=== PATIENT | female | born 1945 | race Caucasian/White ===

== ENCOUNTER 2019-11-20 15:03 | Emergency (ER) | payer OTHER, MEDICARE ==
[~2019-11-20] VITALS: Ht 154.9 cm; Wt 81.7 kg
[~2019-11-20 15:03] MED LIST: AMBIEN5 MG PO; BENTYL20 MG PO; NEURONTIN300 MG PO; NORCO 5-325 TA1 EACH PO; PAXIL20 MG PO; PREDNISONE20 MG PO; PRILOSEC OTC20 MG PO; PROAIR HFA8.5 GM INH; TYLENOL ARTHRI650 MG PO; ZOFRAN ODT8 MG PO
[2019-11-20] MEDS ORDERED: LEVOTHYROXINE75 MCG PO (15:18)
[2019-11-20] MEDS ORDERED: TRAZODONE HCL150 MG PO (15:18)
[2019-11-20] MEDS ORDERED: DULOXETINE HCL60 MG PO (15:18)
[2019-11-20] MEDS ORDERED: PRILOSEC OTC20 MG PO (16:52)
--- NOTE | 2019-11-20 23:13 | EKG ---
[facility] [address] [facility] [place], [place] [address] Signed Normal sinus rhythm Normal ECG No previous ECGs available Confirmed by CHEYANNE LOPEZ MD ([id number]) on 11/20/2019 11:13:18 PM Electronically Signed By: CHEYANNE LOPEZ MD 11/20/19 2313 PATIENT NAME: AMINATA LAYNE SOLO Electrocardiogram DATE OF : 49 PHYSICIAN: CHEYANNE LOPEZ MD REPORT #: [id number] REPORT IS CONFIDENTIAL AND NOT TO BE RELEASED WITHOUT AUTHORIZATION
== END 2019-11-20 17:11 | disposition home or self-care (01) ==
LOC: ED 15:03
DX: R07.89 Other chest pain (principal); J45.909 Unspecified asthma, uncomplicated; Z88.0 Allergy status to penicillin; Z79.899 Other long term (current) drug therapy
CPT/HCPCS: 71045; 80053; 83735; 84484; 85025; 93005; 93010; 99285-25

== ENCOUNTER 2020-05-16 16:31 | Emergency (ER) | payer MEDICARE ==
[~2020-05-16] VITALS: Ht 154.9 cm; Wt 89.8 kg
[~2020-05-16 16:31] MED LIST changes: +DULOXETINE HCL60 MG PO; +LEVOTHYROXINE75 MCG PO; +TRAZODONE HCL150 MG PO
[2020-05-16] MEDS ORDERED: METOPROLOL SUCC25 MG PO (16:46)
[2020-05-16] MEDS ORDERED: INDAPAMIDE1.25 MG PO (16:47)
[2020-05-16] MEDS ORDERED: BUSPIRONE HCL5 MG PO (16:47)
[2020-05-16] MEDS ORDERED: ATORVASTATIN CA10 MG PO (16:47)
[2020-05-16] MEDS ORDERED: DICLOFENAC SOD100 G1 (16:48)
--- NOTE | 2020-05-16 22:10 | EKG ---
[facility] [address] [facility] [place], [place] [address] Signed Normal sinus rhythm Normal ECG When compared with ECG of 20-NOV-2019 15:10, No significant change was found Confirmed by CHEYANNE LOPEZ MD ([id number]) on 05/16/2020 10:10:14 PM Electronically Signed By: CHEYANNE LOPEZ MD 05/16/202209 PATIENT NAME: AMINATA LAYNE SOLO Electrocardiogram DATE OF : 49 PHYSICIAN: CHEYANNE LOPEZ MD REPORT #: [id number] REPORT IS CONFIDENTIAL AND NOT TO BE RELEASED WITHOUT AUTHORIZATION
== END 2020-05-16 20:01 | disposition home or self-care (01) ==
LOC: ED 16:31
DX: I10 Essential (primary) hypertension (principal); G47.30 Sleep apnea, unspecified; E11.9 Type 2 diabetes mellitus without complications; J45.909 Unspecified asthma, uncomplicated; Z88.0 Allergy status to penicillin; Z79.899 Other long term (current) drug therapy
CPT/HCPCS: 71045; 80053; 84484; 85025; 93005; 93010; 99285-25

== ENCOUNTER 2020-10-17 09:57 | Emergency (ER) | payer MEDICARE ==
[~2020-10-17] VITALS: Ht 154.9 cm; Wt 89.8 kg
[~2020-10-17 09:57] MED LIST changes: +ATORVASTATIN CA10 MG PO; +BUSPIRONE HCL5 MG PO; +DICLOFENAC SOD100 G1; +INDAPAMIDE1.25 MG PO; +METOPROLOL SUCC25 MG PO
[2020-10-17] MEDS ORDERED: LOSARTAN POTASS25 MG PO (10:18)
[2020-10-17] MEDS ORDERED: FLONASE ALLERG9.9 ML NAS (13:56)
--- NOTE | 2020-10-17 20:48 | EKG ---
[facility] [address] [facility] [place], [place] [address] Signed Sinus bradycardia with sinus arrhythmia Low voltage QRS Borderline ECG When compared with ECG of 16-MAY-2020 16:36, No significant change was found Confirmed by CHEYANNE LOPEZ MD ([id number]) on 10/17/2020 8:48:42 PM Electronically Signed By: CHEYANNE LOPEZ MD 10/17/202047 PATIENT NAME: ROVERTOAMINATA SOLO Electrocardiogram DATE OF : 49 PHYSICIAN: CHEYANNE LOPEZ MD REPORT #: [id number] REPORT IS CONFIDENTIAL AND NOT TO BE RELEASED WITHOUT AUTHORIZATION
== END 2020-10-17 14:17 | disposition home or self-care (01) ==
LOC: ED 09:57
DX: J30.9 Allergic rhinitis, unspecified (principal); G47.30 Sleep apnea, unspecified; E11.9 Type 2 diabetes mellitus without complications; J45.909 Unspecified asthma, uncomplicated; Z88.0 Allergy status to penicillin; Z79.899 Other long term (current) drug therapy
CPT/HCPCS: 80053; 81001; 84439; 84443; 84484; 85025; 93005; 93010; 96374; 99285-25; J2405

== ENCOUNTER 2021-09-17 21:00 | Emergency (ER) | payer MEDICARE ==
[~2021-09-17] VITALS: Ht 154.9 cm; Wt 87.1 kg
[~2021-09-17 21:00] MED LIST changes: +FLONASE ALLERG9.9 ML NAS; +LOSARTAN POTASS25 MG PO
[2021-09-18] MEDS ORDERED: HYDROCODON-ACE1 EA10 PO (00:47)
== END 2021-09-18 01:13 | disposition home or self-care (01) ==
LOC: ED 21:00
DX: S20.20XA Contusion of thorax, unspecified, initial encounter (principal); G47.30 Sleep apnea, unspecified; E11.9 Type 2 diabetes mellitus without complications; J45.909 Unspecified asthma, uncomplicated; Z88.0 Allergy status to penicillin; Z79.899 Other long term (current) drug therapy; Z79.51 Long term (current) use of inhaled steroids; W22.8XXA Striking against or struck by other objects, initial encounter
CPT/HCPCS: 36415; 71250; 85025; 96372; 99284-25; J2270

== ENCOUNTER 2022-03-31 01:06 | Emergency (ER) | payer OTHER, MEDICARE ==
[~2022-03-31] VITALS: Ht 154.9 cm; Wt 92.0 kg
[~2022-03-31 01:06] MED LIST changes: +HYDROCODON-ACE1 EA10 PO
[2022-03-31] MEDS ORDERED: HYDROCODON-ACE1 EA10 PO (05:37)
== END 2022-03-31 06:20 | disposition home or self-care (01) ==
LOC: ED 01:06
DX: R10.9 Unspecified abdominal pain (principal); E11.9 Type 2 diabetes mellitus without complications
CPT/HCPCS: 36415; 74176; 80053; 81001; 83690; 85025; 96374; 96375; 99284-25; A9270; J1170; J2405; J7040

== ENCOUNTER 2023-04-02 16:45 | Inpatient (IN) | payer MEDICARE ==
[~2023-04-02] VITALS: Ht 154.9 cm; Wt 92.0 kg
--- OUTSIDE RECORDS SUMMARY | ~2023-04-02 | XMS | Continuity of Care Document ---
Demographics + + + | Address | [address] | | | [place] [address] | + + + | Preferred Language | Unknown | + + + | Marital Status | | + + + | Protestant Affiliation | Unknown | + + + | Race | White | + + + | Ethnic Group | Not or | + + + Author + + + | Author | [facility] | + + + | Organization | [facility] | + + + | Address | [address] | | | [place] [address] | + + + | Phone | | + + + Care Team Providers + + + + | Care Rod Buster Helper Name | Role | Phone | + + + + Unavailable | Unavailable | + + + + Allergies No information. Encounters No information. Functional Status No information. Immunizations No information. Medications No information. Problems + + + + | date | description | facility | + + + + | 2023-01-03 12:49 | UNSPECIFIED ASTHMA, | [facility] | | | UNCOMPLICATED | | + + + + | 2023-01-03 13:00 | UNSPECIFIED ASTHMA, | [facility] | | | UNCOMPLICATED | | + + + + | 2023-03-25 09:29 | HYPOTHYROIDISM, | [facility] | | | UNSPECIFIED | | + + + + | 2023-03-25 09:29 | MORBID (SEVERE) OBESITY | [facility] | | | DUE TO EXCESS CALORIES | | + + + + | 2023-03-25 09:29 | DEHYDRATION | [facility] | + + + + | 2023-03-25 09:29 | Essential (primary) | [facility] | | | hypertension | | + + + + | 2023-03-25 09:29 | CHRONIC OBSTRUCTIVE | [facility] | | | PULMONARY DISEASE, | | | | UNSPECIFIED | | + + + + | 2023-03-25 09:29 | CALCULUS OF GB W ACUTE AND | [facility] | | | CHRONIC CHOLECYST W/O | | | | OBSTRUCTION | | + + + + | 2023-03-25 09:29 | ACUTE CHOLECYSTITIS | [facility] | + + + + Procedures No information. Results/Labs No information. Social History +--------+ + + | date | description | facility | +--------+ + + Vital Signs No information."
--- OUTSIDE RECORDS SUMMARY | ~2023-04-02 | XMS | Continuity of Care Document ---
Demographics + + + | Address | [address] | | | [place] [address] | + + + | Preferred Language | Unknown | + + + | Marital Status | | + + + | Catholic Affiliation | Unknown | + + + | Race | White | + + + | Ethnic Group | Not or | + + + Author + + + | Author | [facility] | + + + | Organization | [facility] | + + + | Address | [address] | | | [place] [address] | + + + | Phone | | + + + Care Team Providers + + + + | Care Wood Room Supervisor Name | Role | Phone | + [...]
[~2023-04-02 16:45] MED LIST changes: +ACETAMINOPHEN500 MG PO; +BACTRIM DS TAB1 EACH PO; +BUSPIRONE HCL10 MG PO; -DICLOFENAC SOD100 G1; +IBUPROFEN600 MG PO; +IRBESARTAN150 MG PO; +LEVOTHYROXINE100 MCG PO; +LIPITOR20 MG PO; +PROAIR DIGIHAL90 MCG INH; -PROAIR HFA8.5 GM INH; +TRAZODONE HCL100 MG PO; +VOLTAREN ARTHRI20 GM TOP
[2023-04-02 17:08] LABS: BASOPHILS 0.6 % (0-2); EOSINOPHILS 4.6 % (0-6); HEMATOCRIT 41.2 % (35.0-50.0); HEMOGLOBIN 13.6 g/dL (12.0-18.0); LYMPHOCYTES 28.4 % (24-44); MCH 31.3 (27-36); MCV 94.6 fl (81-99); MONOCYTES 10.9 % (0-12); NEUTROPHILS 55.5 % (39-80); PLATELET COUNT 355 K/uL (140-440); RBC 4.35 M/ul (4.3-5.7); RDW 14.6 (10.5-15.0)
[2023-04-02 17:30] LABS: ALBUMIN 3.8 g/dL (3.4-5.0); ALBUMIN/GLOBULIN RATIO 0.84 (1.1-2.4); ANION GAP 16.4 (7-21); BILIRUBIN, TOTAL 0.3 ng/dL (0.2-1.0); BUN/CREATININE RATIO 11.45 (6.0-28.6); CREATININE, SERUM 2.27 mg/dL (0.55-1.02); MAGNESIUM 2.1 mg/dL (1.8-2.4); POTASSIUM 4.4 mmol/L (3.5-5.1); PROTEIN, TOTAL 8.3 g/dL (6.4-8.2)
[2023-04-02 17:40] LABS: INFLUENZA B NAA NEGATIVE (NEGATIVE); RESPIRATORY SYNCYTIAL VIR NAA NEGATIVE (NEGATIVE)
[2023-04-02 19:35] VITALS: BP 152/88
--- NOTE | 2023-04-02 20:00 | NUR ---
PATIENT ARRIVED TO THE FLOOR VIA STRETCHER. PATIENT ABLE TO TRANSFER FROM STRETCHER TO HOSPITAL BED A SBA. PATIENTS VITALS TAKEN AND RECORDED. PATIENTS ADMISSION COMPLETED. DISCUSSED PLAN OF CARE. PATIENT DENIES ANY COMMENTS, QUESTIONS OR CONCERNS. IV INFUSING PER ORDER. CALL LIGHT IN REACH.
--- NOTE | 2023-04-02 20:10 | NUR ---
pt ARRIVES TO MEDICAL FLOOR VIA STRETCHER, AMBULATORY TO HOSPITAL BED. RATES PAIN 4/10 "MUCH BETTER AFTER MORPHINE". ASSESSMENT COMPLETE. BOWEL TONES ACTIVE, ABD SOFT, TENDER IN UPPER ABD WITH PALPATION. pt DENIES NAUSEA. NO REQUESTS AT THIS TIME. IV SITE FLUSHED WNL, IVF INFUSING ORDERED.
--- NOTE | 2023-04-02 21:09 | NUR ---
MD IN ROOM AT THIS TIME EVALUATING pt.
--- NOTE | 2023-04-02 21:54 | NUR ---
MD IN ROOM, NGT PLACED. CHEST X RAY COMPLETE AND VIEWED BY MD AT BEDSIDE. NGT FLUSHED WITH 60 MLS WATER. YELLOWISH GREEN DRAINAGE IN CANNISTER. SECURED TO GOWN. DISCUSSING PLAN FOR SURGERY IN AM, pt'S QUESTIONS ANSWERED. FAMILY IN ROOM. CALL LIGHT IN REACH.
--- NOTE | 2023-04-02 22:05 | NUR ---
CONSENT SIGNED BY pt AT THIS TIME. SCHEDULED MEDICATIONS ADMINISTERED. RT RIKY IN ROOM TO COMPLETE EKG FOR PREOP PREVIOUS EKG FROM ER WITH POOR READING. ptS FAMILY IN ROOM. NO REQUESTS AT THIS TIME. ICE CHIPS FOR COMFORT AND CALL LIGHT IN REACH.
--- NOTE | 2023-04-02 22:10 | EKG ---
[facility] [address] [place] [address] Signed Poor data quality, interpretation may be adversely affected Suspect arm lead reversal, interpretation assumes no reversal Normal sinus rhythm Lateral infarct , age undetermined Inferior infarct , age undetermined Abnormal ECG When compared with ECG of 26-MAR-2023 12:09, QRS axis shifted right Lateral infarct is now present T wave inversion now evident in Lateral leads Confirmed by Slick Correa MD () on 04/02/2023 10:10:26 PM Electronically Signed By: SLICK CORREA MD 04/02/23 2210 PATIENT NAME: AMINATA LAYNE Electrocardiogram DATE OF : 49 PHYSICIAN: SLICK CORREA MD REPORT #: [id number] REPORT IS CONFIDENTIAL AND NOT TO BE RELEASED WITHOUT AUTHORIZATION
--- NOTE | 2023-04-02 23:47 | NUR ---
PHONE CALL FROM , VERIFIED WITH pt HISTORY OF AFIB, pt STATES NOT ON ANY ANTICOAGS. MD UPDATED. PRN CEPACOL LOSANGE AND PRN MORPHINE ADMINISTERED FOR REPORTED PAIN IN ABDOMEN. NGT TO INT SUCTION. HOB ELEVATED. SON IN ROOM VISITING WITH pt. SCDS APPLIED. CALL LIGHT IN REACH.
[2023-04-03] VITALS (7 sets, daily range): BP systolic 105–149; BP diastolic 51–94
--- NOTE | 2023-04-03 02:20 | NUR ---
VSS. SBA TO RESTROOM FOR VOID AND BACK TO BED. ASSESSMENT COMPLETE. pt DENIES PAIN. ABD SOFT, TENDER IN UPPER ABDOMEN WITH PALPATION. NGT BACK TO INTERMITTENT SUCTION. IV SITE FLUSHED WNL AND INFUSING ORDERED. CALL LIGHT WITHIN REACH.
--- NOTE | 2023-04-03 05:30 | NUR ---
pt AWAKE RESTING IN BED. VSS. NGT TO INTERMITTANT WALL SUCTION, 200 MLS DRAINAGE OUT THIS SHIFT. SBA TO RESTROOM FOR VOID. BACK IN BED. IVF INFUSING WNL, IV ANTIBIOTIC INFUSING. pt DENIES ANY PAIN. CALL LIGHT IN REACH.
[2023-04-03 06:06] LABS: BASOPHILS 0.4 % (0-2); EOSINOPHILS 4.7 % (0-6); HEMATOCRIT 36.5 % (35.0-50.0); LYMPHOCYTES 35.4 % (24-44); MCH 31.2 (27-36); MCHC 32.9 g/dl (30-36); MCV 94.7 fl (81-99); MONOCYTES 8.2 % (0-12); NEUTROPHILS 51.3 % (39-80); PLATELET COUNT 265 K/uL (140-440); RBC 3.85 M/ul (4.3-5.7); RDW 14.7 (10.5-15.0)
[2023-04-03 06:17] LABS: ANION GAP 12.4 (7-21); BUN/CREATININE RATIO 13.46 (6.0-28.6); CREATININE, SERUM 1.56 mg/dL (0.55-1.02); POTASSIUM 4.4 mmol/L (3.5-5.1)
--- NOTE | 2023-04-03 06:52 | NUR ---
CALL LIGHT ANSWERED. PRN PAIN MEDICATION ADMINISTERED FOR 6-7/10 PAIN IN SHOULDER. PRN PAIN MEDICATION ADMINISTERED. pt DENIES ABDOMINAL PAIN. NGT FLUSHED WITH 70 MLS. WATER RETURNS IN TUBING, NGT TO INT SUCTION. CALL LIGHT IN REACH.
--- NOTE | 2023-04-03 07:43 | NUR ---
PT REPORT RECEIVED FROM AMALIA PICKENS. PT IS AWAKE, A&O X4, IN HER BED, LIGHTS OFF. PT DENIES NEEDS AT THIS TIME.
--- NOTE | 2023-04-03 09:00 | NUR ---
AMALIA FERREIRA FROM DAY SURGERY HERE TO TRANSPORT PT TO OR. PT REMOVED DENTURES, IV PUMP OFF. LR WITH STRAIGHT TUBING READY. FAMILY TOOK PT'S CELL PHONE WITH THEM.
--- NOTE | 2023-04-03 09:10 | NUR ---
Attempted to see Patricia. Or nurse in room ready to transport pt to OR.
--- NOTE | 2023-04-03 10:27 | NUR ---
RECIEVED HAND OFF REPORT FROM AMALIA DOMINGUEZ. PT CURRENTLY IN SURGERY.
--- NOTE | 2023-04-03 13:07 | NUR ---
04/03/23 1307 Verónica Varner 1253-PATIENT ARRIVED TO PACU ON 6L MASK RR EVEN. NG TUBE TO LEFT NARE CONNECTED TO LOW ITERMITTENT SUCTION GREEN SECRETIONS. PATIENT NONAROUSABLE IVF INFUSING TO TRIPLE LUMEN CENTRAL LINE. SR. DRESSING TO ABDOMEN CDI. 1259-PATIENT REACTIVE TO VERBAL STIMULI WINCING EYES CLOSED. GERARDO NEWSPAPER MANAGER AT BEDSIDE ADMINISTERED 50MCG FENTANYL IVP RIGHT AC IV FLUSHED RESISTANCE MET.
--- NOTE | 2023-04-03 13:58 | NUR ---
FAMILY IN ROOM INDICATED PT IN RECOVERY. SAID THEY WERE TOLD PROCEDURE WENT WELL. GAVE THANKS FOR SUCCESSFUL PROCEDURES. DENIED ANY NEEDS AT THIS TIME.
--- NOTE | 2023-04-03 14:45 | NUR ---
RECIEVED HAND OFF REPORT FROM AMALIA SHELLEY. PT RESTING IN BED, AWAKE. ABD SITE HYPOACTIVE IN ALL, DRESSING CDI. CPOX AND SCDS IN PLACE. NG CONNECTED TO INT. WALL SUCTION. FAMILY AT BEDSIDE. CALL LIGHT IN REACH.
--- NOTE | 2023-04-03 16:45 | NUR ---
POST OP ASSESSMENT COMPLETE. PT RESTING IN BED, REQUESTING PAIN MEDICATION. ABD HYPOACTIVE THROUGHOUT. DRESSING CDI. CALL LIGHT IN REACH.
--- NOTE | 2023-04-03 17:05 | NUR ---
PT COMPLAINS OF 9/10 PAIN, PRN PAIN MEDICATION ADMINISTERED (PER EMAR). FLUSHED NG TUBE (PER MD ORDER) WITH 20ML TAP WATER. PT TOLERATED WELL NG REMAINS CONNECTED TO INT. WALL SUCTION. PT STATES NO FURTHERS NEEDS AT THIS TIME. CALL LIGHT IN REACH.
--- NOTE | 2023-04-03 19:30 | NUR ---
REPORT RECEIVED FROM DAY SHIFT RN. PT SITTING UP IN BED AWAKE AND ALERT. NGT IN PLACE. OXY MASK IN PLACE. NAUSEA MEDICATION PROVIDED PER PATIENT REQUEST FOR NAUSEA. NO OTHER NEEDS AT THIS TIME. FAMILY MEMEBERS AT BEDSIDE. CALL LIGHT WITHIN REACH. SAFETY PRECAUTIONS IN PLACE.
--- NOTE | 2023-04-03 22:10 | EKG ---
[facility] [address] [facility] [place] [address] Signed Sinus bradycardia Possible Left atrial enlargement Low voltage QRS Borderline ECG When compared with ECG of 02-APR-2023 17:02, QRS axis shifted left Criteria for Lateral infarct are no longer present Confirmed by Slick Correa MD () on 04/03/2023 10:10:26 PM Electronically Signed By: SLICK CORREA MD 04/03/23 2210 PATIENT NAME: AMINATA LAYNE SOLO Electrocardiogram DATE OF : 49 PHYSICIAN: SLICK CORREA MD REPORT #: [id number] REPORT IS CONFIDENTIAL AND NOT TO BE RELEASED WITHOUT AUTHORIZATION
--- NOTE | 2023-04-04 00:41 | NUR ---
PT SITTING UP IN BED WATCHING TV. NO NEEDS EXPRESSED AT THIS TIME. IV FLUIDS INFUSING. RIGHT TRIPLE LUMEN IJ IN PLACE. NGT TUBE IN PLACE AND ON LOW INT SUCTION. OXY MASK IN PLACE. O2 WNL. CALL LIGHT WITHIN REACH. SAFETY PRECAUTIONS IN PLACE.
[2023-04-04 01:44] VITALS: BP 125/68
--- NOTE | 2023-04-04 04:22 | NUR ---
PT RESTING COMFORTABLY IN BED. BREATHING EVEN AND UNLABORED. NO NEEDS EXPRESSED AT THIS TIME. CALL LIGHT WITHIN REACH. SAFETY PRECAUTIONS IN PLACE. NGT IN PLACE CONNECTED TO LOW INT SUCTION. DAWN CATHETER IN PLACE AND DRAINING CLEAR YELLOW URINE. O2 IN PLACE. WILL CONTINUE TO MONITOR.
[2023-04-04 05:10] VITALS: BP 149/84
[2023-04-04 06:03] LABS: BASOPHILS 0.1 % (0-2); HEMATOCRIT 30.2 % (35.0-50.0); HEMOGLOBIN 9.9 g/dL (12.0-18.0); LYMPHOCYTES 7.8 % (24-44); MCH 31.1 (27-36); MCHC 32.8 g/dl (30-36); MONOCYTES 4.5 % (0-12); NEUTROPHILS 87.6 % (39-80); PLATELET COUNT 229 K/uL (140-440); RBC 3.18 M/ul (4.3-5.7); RDW 14.2 (10.5-15.0)
[2023-04-04 06:06] LABS: ANION GAP 11.6 (7-21); BUN/CREATININE RATIO 17.44 (6.0-28.6); CALCIUM 8.4 mg/dL (8.5-10.1); CREATININE, SERUM 0.86 mg/dL (0.55-1.02); POTASSIUM 4.6 mmol/L (3.5-5.1)
--- NOTE | 2023-04-04 07:20 | NUR ---
PT REPORT RECEIVED FROM AMALIA OG. PT IS RESTING IN BED, HOB ELEVATED, TALKING ON HER CELL PHONE. SHE IS A&O, REPORTS HER PAIN IS OKAY BUT IS STARTING TO CREEP UP ON HER. SHE DENIES ANY NEEDS AT THIS TIME. MIDLINE DRESSING IS INTACT WITH A MINISCULE AMOUNT OF DRAINAGE NOTED IN THE CREASE OF THE LOWER PORTION OF THE DRESSING. BRUISING FROM HEPARIN SHOTS NOTED IN LOWER ABDOMENT. CALL LIGHT IN REACH.
[2023-04-04 09:44] VITALS: BP 132/59
--- NOTE | 2023-04-04 10:50 | NUR ---
REPORT RECEIVED FROM SOBIA RN - PT RESTING IN BED, STATES PAIN IS "WELL CONTROLLED". NGT IN PLACE AT LIS. SP02 96% ON BED SIDE MONITOR. PT STATES UNDERSTANDING TO AMBULATE THIS HOUR.
--- NOTE | 2023-04-04 10:58 | NUR ---
Pt NPO with NGT to low intermittent suction, no NGT output this shift. No c/o nausea. Pt asked for ice chips, ice chips provided. Rated pain 5/10 and classified it as moderate, pain medications provided and on follow up rated it a 1/10 and tolerable. No BM since surgery, reports not having passed gas, advised to let us know if she passes gas. Encouraged ambulation and made a plan with the patient on when to ambulate next.
--- NOTE | 2023-04-04 11:58 | NUR ---
PT UP TO AMBULATE IN HALLWAY - TOELRATED WITH MODERATE PAIN. PRN TORADOL ADMINISTERED AFTER GETTING PT BACK TO CHAIR. ICE JOSUE APPLIED TO MIDLINE INCISION. ALL BELONGINGS IN REACH.
--- NOTE | 2023-04-04 13:15 | NUR ---
Spoke with Patricia. She states she is getting up to walk. I let her know I am CM, and not here to make her walk. She states she needs to get up and walk. She wants to do what the wants. She states she lives in [place] in a house with 5 steps. She does not have rails, but son plans on installing them. She has 5 children and they all want to help her. She has a broken walker and cane. She does not want help ordering from Medicare. She states they are on the "outs". I gave her the infor for [employer] closet. She states she just needs to have her son fix her walker and it will be good. She states she works weekends at [employer]. She pays to mortgage. She states she is ok financially. She cooks, son shops and cleans house. She plans on dc to home when cleared medically. She refuses help with DME. Her son lives with her. She denies further needs.
--- NOTE | 2023-04-04 13:15 | NUR ---
RN IN ROOM TO COMPLETE ASSESSMENT. PT REMAINS UP IN CHAIR. ENCOURAGING COUGH AND DEEP BREATHS. NGT REMAINS AT LIS, MINIMAL OUTPUT. MIDLINE DRESSING C/D/I.
--- NOTE | 2023-04-04 13:38 | NUR ---
EXERCISED MINISTRY OF PRESENCE PT TALKED OF FAMILY AND PENTECOSTALISM HISTORY. GAVE THANKS FOR THOSE BLESSINGS AND FOR SUCCESSFUL PROCEDURE. PT CONSENTED TO PRAYER. PRAYED FOR COMPLETE AND TIMELY HEALING.
[2023-04-04 13:49] VITALS: BP 138/62
--- NOTE | 2023-04-04 14:25 | NUR ---
THIS RN IN ROOM AFTER DR. ARTEAGA ROUNDING. NGT PULLED BY DR. ARTEAGA ACCORDING TO PT. PT PROVIDED BROTH AND JELLO AND ADVISED TO GO SLOWLY WITH ORAL INTAKE. ABX ADMINISTERED. VS STABLE.
--- NOTE | 2023-04-04 15:00 | NUR ---
PT SITTING UP IN CHAIR VISITING WITH FAMILY, CALL LIGHT WITHIN REACH.
--- NOTE | 2023-04-04 16:54 | NUR ---
Pt given medication for pain of 5/10 which she rated as moderate to severe. Reassessed after pain medication given and she rates it as a 3/10 her goal and tolerable for her. Resting comfortably, talking and laughing with family. Tolerated Jello and broth without difficulty, no N/V with d/c of NGT. Looking forward to dinner. Remains OOB in chair. Encouraged ambulation and made plan to ambulate later this evening.
[2023-04-04 17:37] VITALS: BP 146/61
--- NOTE | 2023-04-04 18:21 | NUR ---
pt up in hallway ambulating with student rn assistance. Dr. cortés aware of pt's request to start home meds.
--- NOTE | 2023-04-04 18:40 | NUR ---
Pt reports pain at a 3 adminstration of pain meds, able to ambulate in melo with walker entire length of unit and back without difficulty with student nurse. Talking and laughing while ambulating without SOB or dizziness. Some belching after PO intake and while ambulating. Back to bed, after being up in her chair for the day. SCD's back on. IVF running without difficulty. Rodas cath draining, she had concern it was leaking. Inspected and no leaking noted.
--- NOTE | 2023-04-04 19:27 | NUR ---
REPORT RECEIVED FROM DAY SHIFT RN. PT SITTING UP IN BED TALKING ON THE PHONE. NO SIGNS OF ACUTE DISTRESS. NO NEEDS EXPRESSED AT THIS TIME. CALL LIGHT WITHIN REACH. SAFETY PRECAUTIONS IN PLACE.
[2023-04-04 20:15] VITALS: BP 156/74
[2023-04-05 05:40] VITALS: BP 145/64
--- NOTE | 2023-04-05 07:11 | NUR ---
VERBAL REPORT RECEIVED FROM AMALIA OG.
--- NOTE | 2023-04-05 07:29 | NUR ---
PT UP WITH TIMOTHY QUINONES, ASSISTED BY ULTRASONIC SEAMING MACHINE OPERATOR.
--- NOTE | 2023-04-05 07:34 | NUR ---
REPORT GIVEN TO DAY SHIFT RN. PT RESTING IN BED WTH EYES CLOSED. BREATHING EVEN AND UNABORED. CALL LIGHT WITHIN REACH. SAFETY PRECAUTIONS IN PLACE. NO NEEDS EXPRESSED AT THIS TIME.
[2023-04-05 09:01] VITALS: BP 159/70
--- NOTE | 2023-04-05 09:53 | NUR ---
PT SITS UP IN RECLINER, LR INFUSING VIA IJ BLUE LUMEN. WHITE AND BROWN LUMENS FLUSHED WITH 10CC OF NS, BLOOD RETURN NOTED, PATENT. IV IN RAC FLUSHED WITH 1OCC OF NS, PATENT, DRESSING C/D/I, NO REDNESS NOTED. PT ON 2L O2 VIA NC, SATS 98%. PT REPORTS FLATUS THIS MORNING. PT AGREES TO AMBULATE IN HALLWAY TODAY WITH STUDENT NURSE DWAYNE. DRESSING OVER MID ABDOMEN INCISION IS INTACT. SMALL AMOUNT OF OLD DRY DRAINAGE NOTED ON DRESSING. NO NEW DRAINAGE NOTED. NO REQUESTS AT THIS TIME.
--- NOTE | 2023-04-05 10:40 | NUR ---
CONNECTED WITH PT WHILE SHE WAS WALKING IN HALLWAY. PT SEEMED IN GOOD SPIRITS WTIH CONTINUED GOOD HUMOR. PRAYED SILENTLY FOR CONTINUED HEALING.
--- NOTE | 2023-04-05 11:00 | NUR ---
Pt was OOB for breakfast. Ambulated after breakfast BP 134/87, HR 62 s/p metoprolol and prior to ambulation. Void x 1 prior to ambulatioin. Tolerated ambulating the entire unit w/p dizziness or weakness. Slightly SOB while ambulating but improved with pause and deep breathe. Back to bed after ambulating per pt request. SCDs on, call das in reach. IVF's running as ordered. Made plan with patient to get OOB to chair for lunch.
--- NOTE | 2023-04-05 11:47 | NUR ---
PT PROVIDED INCENTIVE SPIROMETER AND EDUCATED ON USE, ABLE TO DEMONSTRATE CORRECT USE UPON TEACHBACK. MD ENCOURAGED FLUIDS. PROVIDED PATIENT WITH FRESH CUP/STRAW OF WATER AND ENCOURAGED PATIENT TO TAKE SMALL FREQUENT SIPS TO INCREASE FLUID INTAKE.
--- NOTE | 2023-04-05 12:55 | NUR ---
Pt ambulated with assistance to bathroom with + void. Pt became tearful while sitting on the toilet, crying. Asked pt to verbalize feelings and she states she didn't know what was wrong but she didn't want her family to worry and she thought she would be futher along in healing process. Support provided, discussed healing process taking time. Got patient back to chair, provided warm blanket, hot broth. Call das in reach, phone provided so she can call family. RN notified pt tearful. watch assembly instructor notified charge nurse that patient interested in PRN Buspirone.
--- NOTE | 2023-04-05 13:15 | NUR ---
PT SITTING UP IN RECLINER, TEARFUL. EXPRESSES SADNESS AND ANXIETY REGARDING HOSPITALIZATION. PROVIDED COMFORT AND REASSURANCE. PT GIVEN PRN ELIZA, SEE EMAR. PT DENIES FURTHER NEEDS AT THIS TIME. CALL LIGHT IN REACH.
--- NOTE | 2023-04-05 13:28 | NUR ---
PT SITS UP IN RECLINER. PT IS TEARFULL, HAS TISSUES. PT STATES, "I JUST HAVING A DOWN DAY." MORE TISSUES PROVIDED. CALL LIGHT IN REACH. NO FURTHER REQUESTS AT THIS TIME.
[2023-04-05 13:34] VITALS: BP 156/88
--- NOTE | 2023-04-05 14:46 | NUR ---
PT SITS UP IN BED, SCDS IN PLACE, 2L O2 VIA NC, SATS 96%. PT REPORTS SHE FEELS LIKE SHE IS ABLE TO CLEAR HER SECRETIONS WELL. CALL LIGHT IN REACH, NO REQUESTS AT THIS TIME. VISITOR X1 IN ROOM. PT WATCHES TV.
--- NOTE | 2023-04-05 16:52 | NUR ---
1640-PT REPORTS ABDOMINAL PAIN 12/08. DILAUDID RECEIVED, SEE eMAR. PT SBA TO BATHROOM, PT VOIDS CLEAR YELLOW URINE. PT SBA TO RECLINER. PT TOLERATES ACTIVITY WELL. NOTED SWELLING AROUND IJ SITE. DRESSING INTACT, NO LEAKING. INFUSION STOPPED. 1644- CALLED AND NOTIFIED OF MODERATED SWELLING AROUND IJ SITE. LR WAS INFUSING VIA THE BLUE LUMEN, INSTRUCTS TO CHECK LUMENS FOR BLOOD RETURN AND RESUME INFUSION VIA THE BROWN LUMEN. IF SWELLING WORSENS HE IS TO BE CONTACTED. 1651-BLUE, BROWN AND WHITE LUMENS EACH FLUSHED WITH 10CC OF NS, BLOOD RETURN NOTED. LR INFUSION RESUMED VIA BROWN (DISTAL) LUMEN.
--- NOTE | 2023-04-05 17:22 | NUR ---
SWELLING PREVIOUSLY NOTED AROUND IJ HAS NOT CHANGED, NO INCREASE. NO REDNESS OR LEAKING NOTED. LR CONTINUES TO INFUSE. PT SITS UP IN RECLINER ON CELL PHONE. NO REQUESTS AT THIS TIME.
--- NOTE | 2023-04-05 18:12 | NUR ---
PT TOLERATED ACTIVITY WELL TODAY. SITS UP IN BED, REPOSITIONS SELF, AMBULATES WITH WALKER TO RECLINER, BATHROOM AND IN HALLWAY. PT MAINTAINS O2 SATS GREATER THAN 94% ON 2L O2 VIA NC. INCISIONS TO ABDOMEN REMAIN WELL APPROXIMATED, NO NEW DRAINAGE. PT DOES EXPERIENCE INCREASED FOAM SECRETIONS WHICH SHE IS ABLE TO CLEAR, DR. ARTEAGA SPOKE TO PT ABOUT THIS AND HOW IS RELATES TO EDEMA FROM THE SURGERY. PT WAS TEARFUL TODAY, EXPRESSED THAT SHE DIPIKA DOWN, SHE DID RECOVER FROM THIS EPISODE AND HAD VISITORS THIS EVENING. PT REPORTS FLATUS, BOWL TONES ARE HYPOACTIVE. IJ IN RIGHT NECK DOES HAVE MILD SWELLING, PARTICULARLY AT THE DISTAL AREA OF THE SITE. THIS HAS NOT INCREASED SINCE THE LR INFUSION WAS CHANGED TO INFUSE VIA THE BROWN (DISTAL) LUMEN. DR. ARTEAGA IS TO BE NOTIFIED IF THE SWELLING WORSENS. PAIN TODAY HAS BEEN CONTROLLED WITH MORPHINE AND DILAUDID IV.
[2023-04-05 18:20] VITALS: BP 124/64
--- NOTE | 2023-04-05 19:39 | NUR ---
REPORT RECEIVED FROM DAY SHIFT RN. PT SITTING UP IN RECLINER AWAKE AND ALERT TALKING WITH MD AT BEDSIDE. NO SIGNS OF ACUTE DISTRESS. CALL LIGHT WITHIN REACH. NO NEEDS EXPRESSED AT THIS TIME. WILL CONTINUE TO MONITOR.
[2023-04-05 20:23] VITALS: BP 153/70
--- NOTE | 2023-04-05 21:15 | NUR ---
Asissted Pt SBA from chair to bathroom to bed. Gave Pt warm blanket and refilled fresh water and ice. Family member in room. Call light left in reach. No other needs expressed by Pt.
--- NOTE | 2023-04-06 00:55 | NUR ---
PT RESTING IN BED WITH EYES CLOSED. BREATHING EVEN AND UNLABORED. BIPAP IN PLACE. IV FLUIDS INFUSING. CALL LIGHT WITHIN REACH. SAFETY PRECAUTIONS IN PLACE. WILL CONTINUE TO MONITOR.
--- NOTE | 2023-04-06 01:05 | NUR ---
HOME BIPAP SET UP AND READY TO GO. SETTINGS PIP 22, EPAP RANGE 7-15, PS MAX 15, PS MIN 3, RR AUTO.
--- NOTE | 2023-04-06 02:36 | NUR ---
IN TO ASSIST TO BR, SBA
[2023-04-06 04:57] VITALS: BP 151/70
[2023-04-06 05:20] LABS: BASOPHILS 0.3 % (0-2); EOSINOPHILS 2.8 % (0-6); HEMATOCRIT 28.2 % (35.0-50.0); HEMOGLOBIN 9.4 g/dL (12.0-18.0); LYMPHOCYTES 27.8 % (24-44); MCHC 33.3 g/dl (30-36); MCV 93.2 fl (81-99); MONOCYTES 6.5 % (0-12); NEUTROPHILS 62.6 % (39-80); PLATELET COUNT 220 K/uL (140-440); RBC 3.03 M/ul (4.3-5.7); RDW 14.6 (10.5-15.0)
[2023-04-06 05:31] LABS: ANION GAP 11.5 (7-21); BUN/CREATININE RATIO 16.41 (6.0-28.6); CALCIUM 8.6 mg/dL (8.5-10.1); CREATININE, SERUM 0.67 mg/dL (0.55-1.02); MAGNESIUM 1.6 mg/dL (1.8-2.4); POTASSIUM 3.5 mmol/L (3.5-5.1)
--- NOTE | 2023-04-06 07:40 | NUR ---
Patient resting in bed, eyes closed, respirations even and non labored. IV fluids infusing per provider order. Call light within reach.
--- NOTE | 2023-04-06 08:45 | NUR ---
Patient sitting up in chair, alert and oriented x4, no distress. Patient reports tolerable pain at this time, no nausea. Abdominal dressing has small amount of dried sarosang drainage noted. Patient's IJ intact/patent, fluids infusing per provider order. Patient reports passing flatus, active bowel tones x4 quadrants. No current needs, personal supplies and call light within reach.
--- NOTE | 2023-04-06 12:46 | NUR ---
Patient ambulated in hallway with family, tolerated very well.
--- NOTE | 2023-04-06 13:40 | NUR ---
Patient's diet advanced to full liquids per Dr. Dick's verbal order. Patient tolerating eating pudding at this time. Patient's swallow intact. Patient educated regarding diet change and new plan of care.
[2023-04-06 13:41] VITALS: BP 147/75
[2023-04-06 17:33] VITALS: BP 139/74
--- NOTE | 2023-04-06 17:52 | NUR ---
Patient sitting up in chair eating her dinner, tolerating well. Patient's swallow remains intact, airway patent. Patient has a visitor at bedside. Patient reported to be tolerable, no nausea. Call light within reach of pt.
--- NOTE | 2023-04-06 20:00 | NUR ---
REPORT GIVEN BY DAY SHIFT RN. ROUNDING ON PATIENT. PATIENT IN THE CHAIR, AND UP TO THE BATHROOM WITH MINIMAL SBA. PATIENT BACK TO BED AND SCD's WERE PLACED. PATIENT STATES NO FURTHER NEEDS, AND CALL LIGHT IS WITHIN REACH.
[2023-04-06 21:29] VITALS: BP 137/73
--- NOTE | 2023-04-06 22:21 | NUR ---
ASSESSMENT COMPLETE. PAIENTS EVENING MEDICATIONS WERE ADMINISTERED, SEE EMAR. PATIENT DENIES DIFFICULTING SWALLOWING AND ABLE TO TAKE MEDICATION. PATIENT UP TO THE BATHROOM WITH MINIMAL SBA. PATIENT STATES MINIMAL PAIN WHEN TOUCHING THE ABDOMEN BUT IT IS "TOLERABLE". PATIENT HAS ACTIVE BOWEL TONES IN ALL FOUR QUADRANTS. THE DRESSING ON THE INSISION IS C/D/I WITH MINIMAL SHADOWING PRESENT. SCDs IN PLACE. PATIENT STATES NO FURTHER NEEDS AT THIS TIME, AND IS READY TO GET SOME REST. CALL LIGHT WITHIN REACH.
--- NOTE | 2023-04-06 23:25 | NUR ---
ROUNDING ON PATIENT. PATIENT RESTING IN BED WITH EYES CLOSED. RESPIRATIONS EVEN AND UNLABORED. CALL LIGHT WITHIN REACH.
--- NOTE | 2023-04-07 00:36 | NUR ---
CALL LIGHT ANSWERED. PATIENT UP TO THE BATHROOM WITH MINIMAL SBA. PATIENT STATES SHE HAS "5/10 PAIN" IN HER ABDOMEN. MEDICAITON GIVEN, SEE EMAR. NO SWALLOWING ISSUES NOTED. RIGHT SIDE IJ CARE PROVIDED AND WNL. HEPARIN LOCKED PER PROTOCOL, BRISK BLOOD RETURN NOTED IN ALL 3 LUMENS. IV IN THE RIGHT FOREARM FLUSHED. AND IS WNL. CPAP IN PLACE. SCDs IN PLACE. PATIENT HAS NO FURTHER NEEDS AT THIS TIME. CALL LIGHT WITHIN REACH.
--- NOTE | 2023-04-07 02:28 | NUR ---
ROUNDING ON PATIENT. PATIENT RESTING IN BED WITH EYES CLOSED. RESPIRATIONS EVEN AND UNLABORED. CPAP IN PLACE. PATIENT 02 AT 92%. CALL LIGHT WITHIN REACH.
--- NOTE | 2023-04-07 04:02 | NUR ---
CALL LIGHT ANSWERED. PT UP TO BR WITH MINIMAL SBA TO VOID 700 ML YELLOW URINE. BACK TO BED, NGHIA WELL. CPAP OFF AT THIS TIME. CPOX IN PLACE. WARM BLANKET PROVIDED. NO FURTHER NEEDS.
[2023-04-07 05:18] VITALS: BP 142/60
--- NOTE | 2023-04-07 05:38 | NUR ---
SECOND ASSESSMENT COMPLETE. VSS. MORNING LABS DRAWN FROM CENTRAL LINE PER PROTOCOL. PATIENT INCISION DRESSING IS C/D/I WITH MINIMAL SHADOWING PRESENT. CPAP REMOVED, AND PLACED ON 2L NC. PATIENT FELL BACK ASLEEP QUICKLY. RESPIRATIONS EVEN AND UNLABORED. 02 SAT IN LOW 90'S. NO FURTHER NEEDS. CALL LIGHT WITHIN REACH.
[2023-04-07 05:45] LABS: ANION GAP 10.6 (7-21); BUN/CREATININE RATIO 7.69 (6.0-28.6); CALCIUM 8.5 mg/dL (8.5-10.1); CREATININE, SERUM 0.65 mg/dL (0.55-1.02); MAGNESIUM 1.9 mg/dL (1.8-2.4); POTASSIUM 3.6 mmol/L (3.5-5.1)
[2023-04-07 09:10] VITALS: BP 119/60
--- NOTE | 2023-04-07 09:46 | NUR ---
PT HAS BEEN UP INT THE CHAIR THIS AM. ATE SOME OF HER FULL LIQUID DIET, TOLERATING WELL. SHE IS WATCHING TV AND TALKING ON THE PHONE WITH FAMILY
[2023-04-07] MEDS ORDERED: IBUPROFEN600 MG PO (13:41)
[2023-04-07] MEDS ORDERED: DILAUDID2 MG PO (13:42)
--- NOTE | 2023-04-07 15:14 | NUR ---
PT DISCHARGED TO HOME, IJ REMOVED, AND NO BLEEDING NOTED AT THIS TIME, RT AC IV REMOVED AND ALL TIPS INTACKED. FAMILY REMAINS AT BEDSIDE, PT SHOWER SET UP AND SHE HAS CLEAN PJ FOR DISCHARGE. PT ALSO PROVIDED DISCHARGE INSTRUCTION, AND ANSWERED ALL QUESTIONS.
--- NOTE | 2023-04-08 08:53 | OR ---
[facility] [address], [place] [address] Signed DATE OF OPERATION: 04/03/2023 SURGEON: Nhi Arteaga MD PREOPERATIVE DIAGNOSIS: Gastric volvulus with organoaxial rotation. POSTOPERATIVE DIAGNOSIS: Gastric volvulus with organoaxial rotation. Large paraesophageal hernia. PROCEDURES: 1. Reduction of gastric volvulus from posterior mediastinum with repair of paraesophageal hernia. 2. Hill repair (posterior gastropexy). ANESTHESIA: General endotracheal, Richie Chatterjee, [employer] and postoperative external oblique intercostal fascial plane block. INDICATION: This 77-year-old white woman recently underwent laparoscopic cholecystectomy for acute calculous cholecystitis on March 26, 2023 by me. She did perfectly well following operation. Yesterday, she developed rather severe nausea and vomiting and inability to tolerate oral intake. She had two days leading up to that with vague upper abdominal symptoms. She presented to the emergency room where she was thoroughly evaluated by Dr. Hawthorne. She was noted to have an elevated creatinine, but no other findings of concern specifically no elevated white count or other issue. Chest x-ray showed a hiatal hernia and a CT scan was performed which showed a gastric volvulus related to advanced paraesophageal herniation. Specifically, she had all of the stomach within the posterior mediastinum above the diaphragm rotated in an upside-down configuration. She does not have peritonitis versus severe systemic sepsis, only dehydration. She has been fluid resuscitated with improvement of her creatinine to 1.54. A right internal jugular central venous catheter was placed by me prior to operation and she had poor venous access otherwise. She has improved overnight with recent fluid resuscitation and decompression of her stomach with a nasogastric tube. She is now to undergo reduction of the gastric volvulus with repair of the complex paraesophageal hernia by Hill repair technique. She understands the risk of bleeding, infection, recurrent disease and other unforeseen Electronically Signed By: NHI ARTEAGA MD 04/08/23 0853 PATIENT NAME: AMINATA LAYNE OPERATIVE REPORT DATE OF : 49 REPORT #: [id number] PHYSICIAN: NHI ARTEAGA MD PCP: SHUBHAM CASTAÑEDA MD REPORT IS CONFIDENTIAL AND NOT TO BE RELEASED WITHOUT AUTHORIZATION [facility] [address], [place] [address] Signed complications related to the operation and wished to proceed. FINDINGS: Indeed all of the stomach was within the hernia sac above the diaphragm in the posterior mediastinum. It was reduced, showing no sign of infarction of stomach or surrounding soft tissue. In a characteristic manner, the three hernia sacs related to a large hiatal hernia (essentially paraesophageal hernia) were identified, divided, and allowing for reduction and mitigation of the "bungee cord" effect of the hernia sac on the upper stomach and lower esophagus. The anterior and posterior vagal nerve trunks were identified and preserved. A typical Hill posterior gastropexy was performed after closure of the hiatus. Due to lack of acceptable manometric catheter intraoperative manometrics were not performed. However, the resultant flap valve did appear to be optimal. There was of course surgical absence of the gallbladder having been removed in the past 10 days. There was a [place] infraumbilical hernia that was reduced in continuity. The closure of the previous site was secured otherwise, however. The liver had a relatively fatty appearance with a very enlarged left lateral segment of the liver. The spleen was normal. By conclusion good repair of the hiatal defect was accomplished and reduction of the herniated stomach with secure gastropexy to the preaortic fascia. PROCEDURE IN DETAIL: The patient was brought to the operating room and noted to have poor peripheral access. On that basis, the right internal jugular central venous catheterization was performed by me. This was before the operation proper and is dictated in a separate dictation form. The abdomen was prepared with a chlorhexidine solution and draped sterilely. Arms were extended at the side, anticipating placement of retractors. Previous incisions from recent laparoscopic cholecystectomy well all healing well. Steri-Strips had been removed. An incision was made from the xiphoid to the supraumbilical area. Subsequently taken around the umbilicus given her abdominal wall obesity. The abdomen was entered showing no sign of ascites or carcinomatosis. The area of previous closure of the supraumbilical port site was divided inferior to this was a fascial defect with some herniated omentum. This was reduced and the incision extended inferiorly around that. The hernia sac was subsequently excised and discarded. Intraabdominal inspection was undertaken more fully. A very bulky left lateral segment of liver was noted. The stomach was completely herniated above the diaphragm in a typical fashion for gastric volvulus related to advanced paraesophageal hernia. An upper hand retractor was placed and subsequently a Bookwalter retractor in the lower aspect of the table. The table was placed in reverse Trendelenburg position to take Electronically Signed By: NHI ARTEAGA MD 04/08/23 0853 PATIENT NAME: AMINATA LAYNE OPERATIVE REPORT DATE OF : 49 REPORT #: [id number] PHYSICIAN: NHI ARTEAGA MD PCP: SHUBHAM CASTAÑEDA MD REPORT IS CONFIDENTIAL AND NOT TO BE RELEASED WITHOUT AUTHORIZATION [place] [id number] [facility] [place], [place] [address] Signed advantage of gravity and reducing the stomach from the hiatus. The stomach was grasped and the left lateral segment of liver elevated identifying a softball size defect of the hiatus. The stomach was carefully withdrawn including the hernia sac that were chronically associated with it. The antrum itself was mildly ischemic and quickly returned to its normal appearance. Left lateral segment of liver was freed from the diaphragm using electrocautery. The gastrohepatic ligament was incised with electrocautery in a small branch of vein and artery were secured with hemostats and tied with silk tie. This allowed for infolding of the left lateral segment of the liver exposing well the right diaphragmatic chau. The stomach was elevated and retracted to the left, allowing for dissection of the right crura from surrounding the hernia sacs. Various manipulations were undertaken to incise hernia sac associated with the large hernia quite obviously this was a chronic hernia with advanced progression recently. Three typical hernia sacs were incised freeing the esophagus and proximal stomach from the bungee cord like effect of the hernia sac tending to draw the GE junction back into the mediastinum. Careful freeing of the soft tissue from the left and right crura was undertaken. The upper aspect of the esophagogastric junction was retracted upward into the left. Plan for application of [place] clamps to the left and right crura. Care was taken to avoid unintended vagotomy, but thorough excision of hernia sacs was accomplished so as to avoid tendency to retraction of the GE junction into the posterior mediastinum in the future. The left and right crura rather were reapproximated with interrupted 0 silk sutures with Betadine-soaked Tuan pledgets. The index finger was easily able to pass alongside the esophagus. A [place] clamp was placed in the right posterior phrenoesophageal bundle. Attenuation of that bundle on the left side (anterior) was noted and the serosa of the stomach proper was used for repair. Ethibond sutures with Tuan pledgets soaked in Betadine were used to pex the preaortic fascia imbricating the anterior and posterior crura and recreating the flap valve at the GE junction. For such repair sutures were made. Palpation to the anterior wall of the stomach showed an optimal flap valve. The fundus of the stomach was secured superiorly to the tendon of the diaphragm extending medially so as to avoid postoperative herniation of the fundus. Irrigation was undertaken. There appeared to be good hemostasis. The left lateral segment of liver was allowed to return to its natural anatomic configuration. Abdominal irrigation with warm saline was undertaken. Omental small bleeders were secured with 0 silk ties previously. Electronically Signed By: NHI ARTEAGA MD 04/08/23 0853 PATIENT NAME: AMINATA LAYNE OPERATIVE REPORT DATE OF : 49 REPORT #: [id number] PHYSICIAN: NHI ARTEAGA MD PCP: SHUBHAM CASTAÑEDA MD REPORT IS CONFIDENTIAL AND NOT TO BE RELEASED WITHOUT AUTHORIZATION [address] [address] Signed Attention was then turned toward closure. The midline fascia was reapproximated with running bidirectional #1 PDS suture. Subcutaneous tissue was irrigated and skin closed with running subcuticular 3-0 Vicryl. Steri-Strips were applied as was an Acticoat dressing. I normally would have performed intraoperative manometric to calibrate the GE junction repair. However, there is no available manometric nasogastric tube available currently and this step was not undertaken though unlikely to be of clinical significance under the circumstances of her clinical findings. The operation was prolonged, complicated, and difficult lasting three times longer than usual. MD AKANKSHA Kelly/AMALIAL /[id number] cc: MD Reginald Coto Copies: SHUBHAM CASTAÑEDA MD,REGINALD ~ Electronically Signed By: NHI ARTEAGA MD 04/08/23 0853 PATIENT NAME: AMINATA LAYNE SOLO OPERATIVE REPORT DATE OF : 49 REPORT #: [id number] PHYSICIAN: NHI ARTEAGA MD PCP: SHUBHAM CASTAÑEDA MD REPORT IS CONFIDENTIAL AND NOT TO BE RELEASED WITHOUT AUTHORIZATION
--- NOTE | 2023-04-08 08:53 | OR ---
[facility] [address], [place] [address] Signed DATE OF OPERATION: 04/03/2023 SURGEON: Nhi Arteaga MD PREOPERATIVE DIAGNOSIS: Need for central venous access. POSTOPERATIVE DIAGNOSIS: Need for central venous access. PROCEDURE: Right internal jugular central venous catheterization with ultrasound. ANESTHESIA: Intravenous sedation. DESCRIPTION OF PROCEDURE: In the recumbent Trendelenburg position, the right neck was prepared with a chlorhexidine solution and draped sterilely. The Arrow blue tip triple-lumen catheter set was used. Initial access to the right internal jugular vein was unsuccessful and on that basis, a SonCalligo ultrasound device with sterile cover was applied to the right neck showing the internal jugular vein to be more medial than expected. Under direct visualization, the vein was accessed showing dark nonpulsatile blood. Passage of the flexible wire was not forthcoming and the needle was removed. Additional intervention was undertaken under ultrasound guidance this time producing some arterial blood. The needle was quickly removed and pressure applied. After several minutes, re-attempt was undertaken, at this time accessing the right internal jugular vein reliably with good withdrawal of blood. A flexible J-wire was passed down the needle without impediment. The site was incised with an 11 blade and dilated with a balloon dilator and an Arrow blue tip triple-lumen catheter previously inspected and flushed with saline and was passed over the wire. The wire was removed. Aspiration on the distal port showed dark nonpulsatile blood. The catheter was withdrawn a few cm and secured to the skin with the close collar device and anti-infective disk and an OpSite dressing. She tolerated the procedure well. Plans were now made to proceed with preparation of the abdomen for operation. Electronically Signed By: NHI ARTEAGA MD 04/08/23 0853 PATIENT NAME: AMINATA LAYNE OPERATIVE REPORT DATE OF : 49 REPORT #: [id number] PHYSICIAN: NHI ARTEAGA MD PCP: SHUBHAM CASTAÑEDA MD REPORT IS CONFIDENTIAL AND NOT TO BE RELEASED WITHOUT AUTHORIZATION [address] [place], [place] [address] Signed Nhi Arteaga MD JM/AMALIAL /[id number] Copies: ~ Electronically Signed By: NHI ARTEAGA MD 04/08/23 0853 PATIENT NAME: AMINATA LAYNE OPERATIVE REPORT DATE OF : 49 REPORT #: [id number] PHYSICIAN: NHI ARTEAGA MD PCP: SHUBHAM CASTAÑEDA MD REPORT IS CONFIDENTIAL AND NOT TO BE RELEASED WITHOUT AUTHORIZATION
--- NOTE | 2023-04-08 08:53 | HP ---
[facility] [address] [place], [place] [address] Signed ADMISSION DATE: 04/02/2023 REASON FOR ADMISSION: Massive hiatal hernia with stomach and mediastinum. HISTORY OF PRESENT ILLNESS: This 77-year-old white woman is well known to me from the recent past having undergone laparoscopic cholecystectomy with cholangiogram for acute calculous cholecystitis on March 26, 2023. She is found to have acute calculous cholecystitis. She is long known to have a hiatal hernia. She presented to the emergency room this evening and evaluated by Dr. Hawthorne with complaints of nausea and inability to tolerate oral intake over the day. She was found additionally to have an elevated creatinine to 2.27, much higher than her creatinine on previous recent admission. She had no specific complaints of abdominal pain, though she has been poorly tolerating oral intake for less than a day. She has had no fever or chills, though she has had nausea and decreased appetite in the past three days without associated abdominal pain. Her evaluation included a CT scan of the chest, which showed a hiatal hernia containing "the entire stomach with an organoaxial volvulus." There is [id number] fluid and gas distention of the stomach and nonspecific focal fat stranding around the distal gastric antrum. Notably, her white count was normal at 9.2, platelets 355,000, hematocrit 41.2. Her creatinine was elevated at 2.27. She is admitted for further evaluation and care. PAST MEDICAL HISTORY: Includes: 1. Laparoscopic cholecystectomy with cholangiogram as previously described. 2. She does have "chronic diarrhea". 3. Sleep apnea. 4. Diet-controlled diabetes. 5. Asthma. 6. Atrial fibrillation. MEDICATIONS: Include: Electronically Signed By: NHI ARTEAGA MD 04/08/23 0853 PATIENT NAME: AMINATA LAYNE HISTORY AND PHYSICAL DATE OF : 49 REPORT #: [id number] PHYSICIAN: NHI ARTEAGA MD PCP: SHUBHAM BERG MD REPORT IS CONFIDENTIAL AND NOT TO BE RELEASED WITHOUT AUTHORIZATION [facility] [address] [place], [place] [address] Signed 1. Albuterol. 2. Ibuprofen. 3. Acetaminophen. She is not on a specific anticoagulant from review of her medications. OTHER MEDICATIONS: Include: 1. Duloxetine. 2. Metoprolol. 3. Diclofenac. 4. Buspirone. 5. Trazodone. 6. Irbesartan. 7. Synthroid. 8. Fluticasone. 9. Atorvastatin (Lipitor). SOCIAL HISTORY: She is accompanied by family members. 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 REVIEW OF SYSTEMS: She denies any hematemesis or blood per rectum. She did not have too much pain upon presentation to the hospital. Has had some pain since that time. She denies any fever or chills. PHYSICAL EXAMINATION: GENERAL: Pleasant white woman who is somewhat obese with a BMI of 38.3. VITAL SIGNS: Temperature 98.6, pulse 64, blood pressure 152/88, O2 saturation on room air is 98%. HEENT: Trachea is midline. She has no hoarseness. There is no jugular venous distention. CHEST: Shows normal respiratory excursion. There is no tachypnea. ABDOMEN: Soft and epigastric area is nontender. There is no palpable mass. EXTREMITIES: Show no clubbing, cyanosis, or edema. LAB STUDIES: As previously noted. White count 9.2, hematocrit 41.2. Chem profile abnormal only for creatinine of 2.27 and serology negative for COVID or influenza pathogens. I have reviewed the CT scan and a sizable herniation of stomach into the posterior Electronically Signed By: NHI ARTEAGA MD 04/08/23 0853 PATIENT NAME: AMINATA LAYNE HISTORY AND PHYSICAL DATE OF : 49 REPORT #: [id number] PHYSICIAN: NHI ARTEAGA MD PCP: SHUBHAM BERG MD REPORT IS CONFIDENTIAL AND NOT TO BE RELEASED WITHOUT AUTHORIZATION [facility] [address] [place], [place] [address] Signed mediastinum is noted. The lungs themselves appeared to be clear. The posterior mediastinum is crowded with stomach that has essentially completely herniated into the posterior mediastinum. The spleen is likely within the abdominal cavity from my review. ASSESSMENT: The patient has significant herniation of the stomach within the posterior mediastinum. She has had a long-standing hiatal hernia that she acknowledges. I have passed a nasogastric tube to decompress the stomach and a post tube placement chest x-ray is pending. Operative intervention will be required to reduce the stomach, repair the hiatus and fix the stomach to the intraabdominal cavity. The most appropriate approach in my opinion would be a Hill repair. She may additionally require an anterior gastrotomy (gastric tube) for short-term complete decompression of the stomach and additional fixation of the stomach to the abdominal cavity. The risk of bleeding, infection, need for partial or complete gastric resection were all reviewed. She understands this. Placement of the nasogastric tube delivered nonbloody gastric type juices. As she is not particularly severely distressed at this late hour of 9:30 p.m., additional fluid resuscitation mindful of her elevated creatinine would be appropriate, anticipating operation tomorrow morning if at all possible. If adverse progression or findings suggests, then certainly emergency operation can be performed tonight. I discussed all this with the patient. She understands and agrees. ADDENDUM: The nasogastric tube was placed showing nonhemorrhagic fluid in relatively small amounts. The postprocedure portable chest x-ray showed the tube to be in the stomach as predicted above the diaphragm. This tube was withdrawn and positioned somewhat more optimally. Additional withdrawal of the tube was undertaken as well. She is clinically doing well at this time and is safe to proceed with major operation tomorrow. If she should have a decline in her status in any way emergency operation can be undertaken, but additional fluid resuscitation and optimization would be of benefit if possible, which is the purpose of our current plan. Nhi Arteaga MD /AMALIAL /[id number] Electronically Signed By: NHI ARTEAGA MD 04/08/23 0853 PATIENT NAME: AMINATA LAYNE SOLO HISTORY AND PHYSICAL DATE OF : 49 REPORT #: [id number] PHYSICIAN: NHI ARTEAGA MD PCP: SHUBHAM BERG MD REPORT IS CONFIDENTIAL AND NOT TO BE RELEASED WITHOUT AUTHORIZATION [facility] [address] [place] [address] [place] [address] Signed cc: Reginald Berg MD Copies: REGINALD HAWTHORNE MALCOLM MD ~ Electronically Signed By: NHI ARTEAGA MD 04/08/23 0853 PATIENT NAME: AMINATA LAYNE HISTORY AND PHYSICAL DATE OF : 49 REPORT #: [id number] PHYSICIAN: NHI ARTEAGA MD PCP: SHUBHAM BERG MD REPORT IS CONFIDENTIAL AND NOT TO BE RELEASED WITHOUT AUTHORIZATION
--- NOTE | 2023-04-08 08:53 | DS ---
[facility] [address] [place], [place] [address] Signed ADMISSION DATE: 04/02/2023 DISCHARGE DATE: 04/07/2023 REASON FOR ADMISSION: Gastric volvulus. HISTORY: This 77-year-old white woman is known to me from the recent past having undergone laparoscopic cholecystectomy with intraoperative cholangiogram for severe acute calculous cholecystitis on March 26, 2023. Pathologic finding showed acute calculous cholecystitis. She is long known to have a hiatal hernia treated with PPI medication in the past. She presented to the emergency room, was evaluated by Dr. Hawthorne with complaints of nausea, inability to tolerate oral intake over a day. She was found initially to have an elevated creatinine to 2.27, much higher than her creatinine on her previous hospitalization. As she had no specific complaints of severe abdominal pain and tolerating very poorly oral intake but without fever or chills. Evaluation included lab studies showing normal liver enzymes and CBC, but a CT scan was subsequently performed which showed a giant hiatal hernia with a gastric volvulus (again no actual volvulus). There is a moderate to mild fluid collection with gas distention in the stomach and nonspecific focal fat stranding found around the distal gastric antrum. She was admitted for further evaluation and care. PERTINENT PHYSICAL EXAMINATION: VITAL SIGNS: Showed an obese white woman who is with a BMI of 38.3, temperature 98.6, pulse 64, blood pressure 152/88, O2 saturation on room air is 88%. HEENT: Trachea is midline. CHEST: Clear. HEART: Regular without murmur. ABDOMEN: Soft and epigastric area was nontender. There was no palpable mass. LABORATORY STUDIES: As previously described. ASSESSMENT: The patient was clearly with findings of gastric volvulus, though was not systemically toxic nor tender. Clearly, operative intervention would be necessary. She underwent fluid resuscitation and on the following day in the morning on April 02, 2023, underwent operation. A preoperative intravenous central venous catheter was performed through the right Electronically Signed By: NHI ARTEAGA MD 04/08/23 0853 PATIENT NAME: AMINATA LAYNE DISCHARGE SUMMARY DATE OF : 49 REPORT #: [id number] PHYSICIAN: NHI ARTEAGA MD PCP: SHUBHAM CASTAÑEDA MD REPORT IS CONFIDENTIAL AND NOT TO BE RELEASED WITHOUT AUTHORIZATION [facility] [address] [place], [place] [address] Signed internal jugular. She then underwent operation, which included open reduction of the gastric volvulus dissection of the GE junction and resection of hernia sacs and Hill posterior gastropexy. Appropriate nerve blocks were performed so as to minimize need for opiate medication postoperatively. The nasogastric tube remained in place to allow for decompression of the stomach. It was removed on postoperative day two to allow good decompression of the stomach. She had prompt ambulation and avoidance of opiate medication. She was advanced to a clear liquid diet with caution and a chest x-ray was performed which showed left lower lung field inflammatory changes and mild effusion quite consistent with anatomic findings at operation, but the stomach certainly remain below the diaphragm as expected. She was cautiously advanced to a full liquid diet which she tolerated well. Upon tolerating a full liquid diet and with minimal if any incisional pain she was discharged to home. Her diet plan at discharge will include full liquid diet for at least one week thereafter, followed by a mechanical soft diet. She is to have no meat or bread until I see her back in the office in about one month following discharge. She is advised to walk on a daily basis to avoid deep venous thrombosis. She will keep Steri-Strips in place and she is permitted to shower. She is permitted to work in a week or so within the parameters as outlined, which include no lifting greater than 20 pounds for a month and the dietary restrictions as described. DISCHARGE MEDICATIONS: 1. Include ibuprofen 600 mg p.o. q.6 hours as needed for pain, #30. 2. Dilaudid 2 mg 1-2 p.o. q.6 hours as needed for back up severe pain #10, no refill. She will continue her usual medication of duloxetine 60 mg p.o. daily, metoprolol 25 mg extended release b.i.d. 3. Indapamide 1.25 mg p.o. daily. 4. Diclofenac arthritis gel as needed to joint pain. 5. Buspirone 10 mg p.o. t.i.d. as needed for anxiety. 6. Trazodone 100 mg p.o. at bedtime. 7. Irbesartan 150 mg p.o. at bedtime. 8. Synthroid 100 mcg p.o. daily. 9. Fluticasone two sprays as needed for allergy symptoms. 10. Atorvastatin, Lipitor 20 mg p.o. at bedtime. 11. Acetaminophen 500 mg two tablets p.o. q.6 hours as needed for pain and albuterol ProAir Digihaler two puffs q.4 hours as needed for wheezing. DISCHARGE DIAGNOSES: Electronically Signed By: NHI ARTEAGA MD 04/08/23 0853 PATIENT NAME: AMINATA LAYNE SOLO DISCHARGE SUMMARY DATE OF : 49 REPORT #: [id number] PHYSICIAN: NHI ARTEAGA MD PCP: SHUBHAM CASTAÑEDA MD REPORT IS CONFIDENTIAL AND NOT TO BE RELEASED WITHOUT AUTHORIZATION [facility] [address] [place] [address] Signed 1. Organoaxial volvulus of stomach; long-standing hiatal hernia with progression. 2. Status post reduction of hernia and Hill posterior gastropexy, April 03, 2023. 3. Recent laparoscopic cholecystectomy for acalculous cholecystitis. 4. Obesity. 5. Hypertension. 6. Hypothyroidism. 7. Anxiety. MD AKANKSHA Kelly/EMA /[id number] cc: MD Dr. Marine Coto Copies: SHUBHAM CASTAÑEDA MD ~ Electronically Signed By: NHI ARTEAGA MD 04/08/23 0853 PATIENT NAME: AMINATA LAYNE DISCHARGE SUMMARY DATE OF : 49 REPORT #: [id number] PHYSICIAN: NHI ARTEAGA MD PCP: SHUBHAM CASTAÑEDA MD REPORT IS CONFIDENTIAL AND NOT TO BE RELEASED WITHOUT AUTHORIZATION
== END 2023-04-07 15:35 | disposition home or self-care (01) | DRG 327 ==
LOC: ED 16:45 → MS 19:06
PROVIDERS: Internal Medicine; ADMIT Surgery; ATTEND Surgery
PROC: 0D9670Z Drainage of Stomach with Drainage Device, Via Natural or Artificial Opening (ICD-10-PCS; 2023-04-02)
PROC: 02HV33Z Insertion of Infusion Device into Superior Vena Cava, Percutaneous Approach (ICD-10-PCS; 2023-04-02)
PROC: 0DS60ZZ Reposition Stomach, Open Approach (ICD-10-PCS; principal; 2023-04-03 10:45)
PROC: 0BQT0ZZ Repair Diaphragm, Open Approach (ICD-10-PCS; 2023-04-03 10:45)
DX: K31.89 Other diseases of stomach and duodenum (principal); N17.9 Acute kidney failure, unspecified; Z20.822 Contact with and (suspected) exposure to COVID-19; K44.9 Diaphragmatic hernia without obstruction or gangrene; I10 Essential (primary) hypertension; E66.9 Obesity, unspecified; E03.9 Hypothyroidism, unspecified; F41.9 Anxiety disorder, unspecified; G47.00 Insomnia, unspecified; E11.9 Type 2 diabetes mellitus without complications; J45.909 Unspecified asthma, uncomplicated; I48.91 Unspecified atrial fibrillation; E86.0 Dehydration; Z88.0 Allergy status to penicillin; Z90.49 Acquired absence of other specified parts of digestive tract; Z68.38 Body mass index [BMI] 38.0-38.9, adult
CPT/HCPCS: 00790; 36415; 71045; 71250; 76942; 80048; 80053; 83735; 84484; 85025; 87502; 93005; 93010; 94760; 94762; 96361; 96374; 96375; 99285-25; A9270; C1751; C9803; J0131; J0690; J1100; J1170; J1644; J1885; J2001; J2270; J2371; J2405; J2704; J2795; J3010; J3475; J3490; J3590; J7030; J7121; U0002

== ENCOUNTER 2023-04-12 22:41 | Emergency (ER) | payer MEDICARE ==
[~2023-04-12] VITALS: Ht 154.9 cm; Wt 89.8 kg
[~2023-04-12 22:41] MED LIST changes: +DILAUDID2 MG PO
--- OUTSIDE RECORDS SUMMARY | 2023-04-12 22:44 | XMS ---
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 Glushan has no Care Guidelines for this patient. Karthik VISIT COUNT (12 MO.) 2 [facility] [place] [facility] TOTAL 2 NOTE: Visits indicate total known visits. ED/C VISIT TRACKING (12 MO.) 04/12/2023 22:[address] [facility] [place] [place] TYPE: Emergency COMPLAINT: - POST OP ISSUE 04/02/2023 16:45 [facility] [place] TYPE: Emergency COMPLAINT: - SHORTNESS OF BREATH INPATIENT VISIT TRACKING (12 MO.) 04/02/2023 19:06 [facility] [place] TYPE: Medical Surgical COMPLAINT: - GASTRIC VOLVULUS, BABS DIAGNOSES: - Acquired absence of other specified parts of digestive tract - Acquired absence of other specified parts of digestive tract - Acute kidney failure, unspecified - Acute kidney failure, unspecified - Allergy status to penicillin - Allergy status to penicillin - Anxiety disorder, unspecified - Anxiety disorder, unspecified - Body mass index [BMI] 38.0-38.9, adult - Body mass index [BMI] 38.0-38.9, adult - Contact with and (suspected) exposure to COVID-19 - Contact with and (suspected) exposure to COVID-19 - Dehydration - Dehydration - Diaphragmatic hernia without obstruction or gangrene - Diaphragmatic hernia without obstruction or gangrene - Essential (primary) hypertension - Essential (primary) hypertension - Hypothyroidism, unspecified - Hypothyroidism, unspecified - Insomnia, unspecified - Insomnia, unspecified - Obesity, unspecified - Obesity, unspecified - Other diseases of stomach and duodenum - Type 2 diabetes mellitus without complications - Type 2 diabetes mellitus without complications - Unspecified asthma, uncomplicated - Unspecified asthma, uncomplicated - Unspecified atrial fibrillation - Unspecified atrial fibrillation 03/25/2023 09:[address] [facility] [place] TYPE: Observation COMPLAINT: - ACUTE CALCULOUS CHOLECYSTITIS, DEHYDRATION DIAGNOSES: - Acute cholecystitis - Calculus of gallbladder with acute and chronic cholecystitis without obstruction - Chronic obstructive pulmonary disease, unspecified - Contact with and (suspected) exposure to COVID-19 - Dehydration - Essential (primary) hypertension - Hypothyroidism, unspecified - Morbid (severe) obesity due to excess calories [email or web address]
[2023-04-13] MEDS ORDERED: HYDROMORPHONE HC2 MG PO (04:06)
[2023-04-13 04:12] VITALS: BP 143/88
== END 2023-04-13 04:12 | disposition home or self-care (01) ==
LOC: ED 22:41
DX: R09.3 Abnormal sputum (principal); E11.9 Type 2 diabetes mellitus without complications; J45.909 Unspecified asthma, uncomplicated; Z88.0 Allergy status to penicillin; Z91.018 Allergy to other foods; Z79.890 Hormone replacement therapy; Z79.899 Other long term (current) drug therapy; Z98.890 Other specified postprocedural states
CPT/HCPCS: 71045; 99283-25

== ENCOUNTER 2024-03-01 21:15 | Emergency (ER) | payer MEDICARE ==
[~2024-03-01] VITALS: Ht 154.9 cm; Wt 99.1 kg
[~2024-03-01 21:15] MED LIST changes: +COMPAZINE25 MG PR; +HYDROMORPHONE HC2 MG PO; +ONDANSETRON ODT8 MG PO
--- OUTSIDE RECORDS SUMMARY | 2024-03-01 21:21 | XMS ---
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 Gulshan has no Care Guidelines for this patient. Karthik [facility] MO.) [facility] 4 NOTE: Visits indicate total known visits. ED/C VISIT TRACKING (12 MO.) [facility] COMPLAINT: - ABDOMINAL PAIN 02/02/2024 17:24 [facility] [place] TYPE: Emergency COMPLAINT: - ABD PAIN DIAGNOSES: - Acquired absence of other specified parts of digestive tract - Allergy status to other drugs, medicaments and biological substances - Allergy status to penicillin - Allergy to other foods - Essential (primary) hypertension - Nausea - Other long term care social worker (current) drug therapy - Other specified postprocedural states - Type 2 diabetes mellitus without complications - Unspecified abdominal pain - Unspecified asthma, uncomplicated - Unspecified atrial fibrillation - Ventral hernia without obstruction or gangrene 04/12/2023 22:42 [facility] [place] TYPE: Emergency COMPLAINT: - POST OP ISSUE DIAGNOSES: - Abnormal sputum - Allergy status to penicillin - Allergy to other foods - Epigastric pain - Hormone replacement therapy - Other long term care social worker (current) drug therapy - Other specified postprocedural states - Type 2 diabetes mellitus without complications - Unspecified asthma, uncomplicated 04/02/2023 16:45 [facility] [place] TYPE: Emergency [...] fibrillation - Unspecified atrial fibrillation 03/25/2023 09:29 [facility] [place] TYPE: Observation COMPLAINT: - ACUTE CALCULOUS CHOLECYSTITIS, DEHYDRATION DIAGNOSES: - Acute cholecystitis - Calculus of gallbladder with acute and chronic cholecystitis without obstruction - Chronic obstructive pulmonary disease, unspecified - Contact with and (suspected) exposure to COVID-19 - Dehydration - Essential (primary) hypertension - Hypothyroidism, unspecified - Morbid (severe) obesity due to excess calories [email or web address]
[2024-03-01 21:55] LABS: BASOPHILS 0.6 % (0-2); EOSINOPHILS 5.1 % (0-6); HEMATOCRIT 37.1 % (35.0-50.0); HEMOGLOBIN 12.6 g/dL (12.0-18.0); LYMPHOCYTES 43.4 % (24-44); MCH 31.5 (27-36); MCV 92.8 fl (81-99); MONOCYTES 7.2 % (0-12); NEUTROPHILS 43.7 % (39-80); PLATELET COUNT 287 K/uL (140-440); RDW 14.3 (10.5-15.0)
[2024-03-01] MEDS ORDERED: MORPHINE SULFATE 4 MG/ML VIAL IV ONE (22:00)
[2024-03-01] MEDS ORDERED: ondansetron HCL 4 MG/2 ML VIAL IV ONE (22:00)
[2024-03-01] MEDS ORDERED: SODIUM CHLORIDE 0.9% 1,000 ML IV ONE (22:00)
[2024-03-01 22:12] LABS: ALBUMIN 3.7 g/dL (3.4-5.0); ALBUMIN/GLOBULIN RATIO 0.88 (1.1-2.4); ANION GAP 15.6 (7-21); BILIRUBIN, TOTAL 0.2 ng/dL (0.2-1.0); BUN/CREATININE RATIO 11.2 (6.0-28.6); CALCIUM 9.2 mg/dL (8.5-10.1); CREATININE, SERUM 1.16 mg/dL (0.55-1.02); POTASSIUM 3.6 mmol/L (3.5-5.1); PROTEIN, TOTAL 7.9 g/dL (6.4-8.2)
[2024-03-01 22:57] LABS: BILIRUBIN, URINE NEGATIVE (negative); BLOOD/HGB, URINE NEGATIVE (Negative); KETONE, URINE NEGATIVE (Negative); LEUK ESTERASE, URINE MODERATE (negative); NITRITE, URINE NEGATIVE (negative)
[2024-03-01 23:10] LABS: CRYSTALS, URINE NONE SEEN (0-1+); EPITHELIAL CELLS, URINE SQUAMOUS 2+ /lpf (0-1+); WHITE BLOOD CELLS, URINE 41-50 /HPF (0-5)
[2024-03-01 23:11] LABS: BACTERIA, URINE 1+ /hpf (negative); CASTS, URINE NONE SEEN \\lpf; COLLECTION TYPE, URINE CLEAN CATCH; REFLEX CULTURE, URINE No (No)
[2024-03-01] MEDS ORDERED: LIDOCAINE & ANTACID 35 ML BTL PO ONE (23:45)
[2024-03-01] MEDS ORDERED: NITROFURANTOIN MONOHYD MACROCR 100 MG CAP PO ONE (23:45)
[2024-03-01] MEDS ORDERED: fentaNYL citrate 100 MCG/2 ML VIAL IV ONE (23:45)
[2024-03-02] MEDS ORDERED: MACROBID 100 M100 MG PO (01:58)
[2024-03-02] MEDS ORDERED: NITROFURANTOIN MONOHYD MACROCR 100 MG HOME.PACK PO ONE (02:15)
[2024-03-02 03:12] VITALS: BP 134/54
--- NOTE | 2024-03-03 13:15 | EKG ---
[facility] [address] [facility] [place], [place] [address] Signed Sinus bradycardia Low voltage QRS Cannot rule out Anterior infarct , age undetermined Abnormal ECG When compared with ECG of 02-APR-2023 22:06, No significant change was found Confirmed by Gregorio Alfredo MD ([id number]) on 03/03/2024 1:15:21 PM Electronically Signed By: GREGORIO ALFREDO 03/03/24 1315 PATIENT NAME: AMINATA LAYNE SOLO Electrocardiogram DATE OF : 49 PHYSICIAN: GREGORIO ALFREDO REPORT #: [id number] REPORT IS CONFIDENTIAL AND NOT TO BE RELEASED WITHOUT AUTHORIZATION
== END 2024-03-02 03:14 | disposition home or self-care (01) ==
LOC: ED 21:15
PROVIDERS: Family Medicine
DX: N39.0 Urinary tract infection, site not specified (principal); K43.9 Ventral hernia without obstruction or gangrene; J45.909 Unspecified asthma, uncomplicated; E11.9 Type 2 diabetes mellitus without complications; Z88.0 Allergy status to penicillin; Z91.018 Allergy to other foods; Z79.899 Other long term (current) drug therapy; Z79.890 Hormone replacement therapy
CPT/HCPCS: 36415; 71045; 74177; 80053; 81001; 83690; 84484; 85025; 93005; 93010; 96375; 99284-25; J2270; J2405; J3010; J7030; Q9967

== ENCOUNTER 2024-04-21 20:59 | Emergency (ER) | payer MEDICARE ==
[~2024-04-21] VITALS: Ht 154.9 cm; Wt 96.8 kg
[~2024-04-21 20:59] MED LIST changes: +MACROBID 100 M100 MG PO
[2024-04-21 21:13] LABS: BASOPHILS 0.6 % (0-2); EOSINOPHILS 3.2 % (0-6); HEMATOCRIT 37.3 % (35.0-50.0); HEMOGLOBIN 12.8 g/dL (12.0-18.0); MCH 32.2 (27-36); MCHC 34.4 g/dl (30-36); MCV 93.5 fl (81-99); MONOCYTES 6.2 % (0-12); PLATELET COUNT 282 K/uL (140-440); RBC 3.99 M/ul (4.3-5.7)
[2024-04-21] MEDS ORDERED: NITROGLYCERIN PACKET TOP ONE (21:15)
[2024-04-21] MEDS ORDERED: ASPIRIN 81 MG CHEW PO ONE (21:15)
[2024-04-21 21:22] LABS: INR 1.01 (0.80-1.30); PROTIME 12.9 Sec (11.2-14.2)
[2024-04-21 21:24] LABS: PARTIAL THROMBOPLASTIN TIME 23.5 Sec (22.9-41.3)
[2024-04-21 21:35] LABS: ALBUMIN 3.5 g/dL (3.4-5.0); ALBUMIN/GLOBULIN RATIO 0.88 (1.1-2.4); ANION GAP 15.6 (7-21); BILIRUBIN, TOTAL 0.3 ng/dL (0.2-1.0); BUN/CREATININE RATIO 15.68 (6.0-28.6); CALCIUM 9.4 mg/dL (8.5-10.1); CREATININE, SERUM 1.02 mg/dL (0.55-1.02); POTASSIUM 3.6 mmol/L (3.5-5.1); PROTEIN, TOTAL 7.5 g/dL (6.4-8.2)
[2024-04-21 22:11] LABS: INFLUENZA B NAA NEGATIVE (NEGATIVE); RESPIRATORY SYNCYTIAL VIR NAA NEGATIVE (NEGATIVE)
[2024-04-21] MEDS ORDERED: KETOROLAC TROMETHAMINE 30 MG/ML VIAL IV ONE (22:30)
[2024-04-22] MEDS ORDERED: CYCLOBENZAPRINE10 MG PO (00:38)
[2024-04-22] MEDS ORDERED: CYCLOBENZAPRINE HCL 10 MG HOME.PACK PO ONE (00:45)
[2024-04-22 00:55] VITALS: BP 133/89
--- NOTE | 2024-04-23 11:56 | EKG ---
[facility] [address] [place] [address] [facility] [place], [place] [address] Signed Normal sinus rhythm Inferior infarct , age undetermined Cannot rule out Anterior infarct (cited on or before 02-APR-2023) Abnormal ECG When compared with ECG of 02-MAR-2024 02:07, QT has shortened Confirmed by Fernando Severino MD ([id number]) on 04/23/2024 11:56:32 AM Electronically Signed By: FERNANDO SEVERINO MD 04/23/24 1156 PATIENT NAME: AMINATA LAYNE SOLO Electrocardiogram DATE OF : 49 PHYSICIAN: FERNANDO SEVERINO MD REPORT #: [id number] REPORT IS CONFIDENTIAL AND NOT TO BE RELEASED WITHOUT AUTHORIZATION
== END 2024-04-22 00:56 | disposition home or self-care (01) ==
LOC: ED 20:59
PROVIDERS: Family Medicine
DX: R07.89 Other chest pain (principal); E11.9 Type 2 diabetes mellitus without complications; Z88.0 Allergy status to penicillin; Z91.018 Allergy to other foods; Z79.899 Other long term (current) drug therapy; Z79.890 Hormone replacement therapy; Z11.52 Encounter for screening for COVID-19
CPT/HCPCS: 36415; 71260; 74018; 74022; 80053; 83735; 83880; 84484; 85025; 85379; 85610; 85730; 87502; 93005; 93010; 99285-25; A9270; J1885; Q9967; U0002

== ENCOUNTER 2024-08-13 06:01 | Day surgery (SDC) | payer MEDICARE ==
[2024-08-10 13:46] VITALS: BP 144/84
[2024-08-13] VITALS (10 sets, daily range): BP systolic 129–146; BP diastolic 55–89
[~2024-08-13] VITALS: Ht 154.9 cm; Wt 93.6 kg
[~2024-08-13 06:01] MED LIST changes: +COLACE100 MG PO; +CYCLOBENZAPRINE10 MG PO; +LACTATED RINGER'S 1,000 ML IV SCH; +NITROGLYCERIN0.4 MG SL; +TOPIRAMATE50 MG PO
[2024-08-13] MEDS ORDERED: ondansetron HCL 4 MG/2 ML VIAL IV PRN ×2 (07:00→14:30)
[2024-08-13] MEDS ORDERED: fentaNYL citrate 50 MCG/ML SDV IV PRN (07:00)
[2024-08-13] MEDS ORDERED: LIDOCAINE HCL 1% 5 ML SDV INJ ONE (07:00)
[2024-08-13] MEDS ORDERED: HEParin SOD (PORCINE) 5,000 UNIT/ML SDV SUB-Q SCH (07:00)
[2024-08-13] MEDS ORDERED: NALOXONE HCL 0.4 MG SYR IV PRN ×2 (07:00→14:30)
[2024-08-13] MEDS ORDERED: IBLOOD GLUCOSE TEST STRIP 1 EA TEST VI PRN ×2 (07:00)
[2024-08-13] MEDS ORDERED: CEFAZOLIN SODIUM 2 GM/20 ML SYR IV SCH (07:00)
[2024-08-13 07:19] LABS: ANION GAP 14.9 (7-21); BUN/CREATININE RATIO 12.84 (6.0-28.6); CALCIUM 9.7 mg/dL (8.5-10.1); CREATININE, SERUM 1.09 mg/dL (0.55-1.02); POTASSIUM 2.9 mmol/L (3.5-5.1)
[2024-08-13] MEDS ORDERED: propofoL 200 MG/20 ML VIAL ONE ×2 (07:20→17:03)
[2024-08-13] MEDS ORDERED: DEXAMETHASONE SOD PHOS 4 MG/ML VIAL ONE ×2 (07:20→17:03)
[2024-08-13] MEDS ORDERED: fentaNYL citrate 100 MCG/2 ML VIAL ONE (07:20)
[2024-08-13] MEDS ORDERED: LIDOCAINE HCL 1% 30 ML SDV ONE (07:20)
[2024-08-13] MEDS ORDERED: LIDOCAINE HCL 2% 5 ML SDV ONE ×2 (07:20→17:03)
[2024-08-13] MEDS ORDERED: ondansetron HCL 4 MG/2 ML VIAL ONE (07:20)
[2024-08-13] MEDS ORDERED: ROCURONIUM BROMIDE 50 MG/5 ML SYR ONE ×2 (07:20→13:15)
[2024-08-13] MEDS ORDERED: SEVOFLURANE 250 ML BTL ONE (07:22)
[2024-08-13] MEDS ORDERED: ACETAMINOPHEN 1,000 MG/100 ML VIAL ONE (07:22)
[2024-08-13] MEDS ORDERED: dexmedeTOMIDine HCl 200 MCG/2 ML VIAL ONE (07:26)
[2024-08-13] MEDS ORDERED: KETAMINE in NS 50 MG/5 ML SYR ONE (07:26)
[2024-08-13] MEDS ORDERED: POTASSIUM CHLORIDE 40 MEQ,LIDOCAINE HCL 1% 40 MG in DEXTROSE 5% 250 ML IV ONE (08:00)
--- NOTE | 2024-08-13 08:24 | NUR ---
POTASSIUM NOTED TO BE LOW ON LAB REDRAW. TRADEMARK ATTORNEY AND MD NOTIFIED AND NEW ORDER RECEIVED AND SURGERY DELAYED. NEW ORDER FROM MD TO INCREASED RATE AND PT REPORTS LARGE AMOUNT OF PAIN ABOVE IV SITE, RATE DECREASED AND ICE PACK TO LEFT ARM. PT REPORTS PAIN IS BETTER. THREE LEAD PLACED AND CALL LIGHT WITHIN REACH. PT DAUGHTER AT BEDSIDE. PT REPORTS DRY MOUTH AND MOUTH SWABS GIVEN. TRADEMARK ATTORNEY UPDATED.
[2024-08-13] MEDS ORDERED: ePHEDrine sulfate 50 MG/ML AMP ONE (12:06)
[2024-08-13] MEDS ORDERED: LACTATED RINGER'S 1,000 ML IV ONE (12:34)
[2024-08-13] MEDS ORDERED: SUGAMMADEX SODIUM 200 MG/2 ML ML ONE (13:13)
[2024-08-13] MEDS ORDERED: SEVOFLURANE 250 ML BTL INH ONE (14:11)
--- NOTE | 2024-08-13 14:16 | NUR ---
08/13/24 1416 Verónica Varner 1407-PATIENT ARRIVED TO PACU ON 6L MASK RR EVEN. PATIENT NONAROUSABLE ORAL AIRWAY IN PLACE. IVF INFUSING. ABDOMINAL DRESSING INTACT. KATHE DRAIN TO RLQ SANGUINOUS DRAINAGE WILL CHANGE PATIENTS GOWN DRAINAGE ON IT. ABDOMINAL BINDER IN PLACE. SR HR 60'S. GLUCOSE CHECKED 151
[2024-08-13] MEDS ORDERED: IBUPROFEN600 MG PO (14:25)
[2024-08-13] MEDS ORDERED: OXYCODON-ACETA1 EAC2 PO (14:26)
[2024-08-13] MEDS ORDERED: CEFAZOLIN SODIUM 2 GM/20 ML SYR IV ONE (14:30)
[2024-08-13] MEDS ORDERED: OXYCODONE/APAP 7.5/325 TAB PO PRN (14:30)
[2024-08-13] MEDS ORDERED: LACTATED RINGER'S 1,000 ML IV SCH (14:30)
[2024-08-13] MEDS ORDERED: IBUPROFEN 600 MG TAB PO PRN (14:30)
[2024-08-13] MEDS ORDERED: HYDROmorphone HCL 1 MG/ML SYR IV PRN (14:30)
--- NOTE | 2024-08-13 16:06 | NUR ---
1510: PATIENT BACK IN DAY SURGERY ROOM FROM PACU. PATIENT GRIMACING WITH PAIN. CRYING INTERMITTENTLY. RATES PAIN 10/10. MIDLINE ABDOMEN SURGICAL DRESSING CLEAN, DRY AND INTACT. RLQ DRESSING FOR KATHE DRAIN WITH SMALL AMOUNT OF RED DRAINAGE. KATHE DRAIN PATENT. ADBOMINAL BINDER ON. RIGHT AC IV SITE WNL WITH LR RUNNING. LEFT HAND IV SALINE LOCKED. VS CHECKED. PATIENT ON 2 L/MIN VIA NASAL CANNULA. O2 SATS AROUND 95% ON 2 L. SCDs ON. PATIENT C/O NAUSEA. MEDICATED IN PACU WITH ZOFRAN IV. SON AT BEDSIDE. CALL LIGHT WITHIN REACH. 1524: PATIENT MEDICATED WITH 0.2 MG OF IV DILAUDID. RT IN ROOM SETTING UP CPAP IF PATIENT BECOMES SLEEPING. SON AT BEDSIDE. CALL LIGHT WITHIN REACH. 1530: DR. ARTEAGA IN ROOM SPEAKING WITH PATIENT AND SON. PLAN TO HAVE TIRE CHANGER PLACE TAP BLOCKS WHEN AVAILABLE.
--- NOTE | 2024-08-13 16:20 | NUR ---
1555: PATIENT MEDICATED WITH ADDITIONAL 0.3 MG OF IV DILAUDID. GRANDDAUGHTER AT BEDSIDE. CALL LIGHT WITHIN REACH. 1610: PATIENT BECOMING DROWSY. CPAP PLACED ON PATIENT WITH 2 L/MIN OF OXYGEN. VS CHECKED. GRANDDAUGHTER REMAINS AT BEDSIDE. CALL LIGHT WITHIN REACH.
--- NOTE | 2024-08-13 16:38 | NUR ---
CHECKED PATIENT. CPAP ON. PATIENT CONTINUES TO HAVE HIGH PAIN. AWAITING SMOOTH AND BURR WORKER COMPOSITES AVAILABLITY FOR TAP BLOCK. CALL LIGHT WITHIN REACH.
[2024-08-13] MEDS ORDERED: SODIUM CHLORIDE 0.9% 60 ML IV ONE (17:03)
[2024-08-13] MEDS ORDERED: Ropivacaine HCl 0.5% 30 ML VIAL ONE (17:03)
--- NOTE | 2024-08-13 18:07 | NUR ---
PT ARRIVES TO MED-SURG VIA GURNEY AT 1749. PT IS AWAKE AND ALERT. PT TRANSFERRED TO BED WITH DRAW SHEET, TOLERATES THIS WELL. VSS. VERBAL BEDSIDE REPORT RECEIVED FROM JAMESON SOLORZANO RN. PT IS ON O2 2L NC, LUNGS CLEAR, HRR UPON ASSESSMENT (HX OF A-FIB), MID-LINE INCISION COVERED WITH ACTICOTE SURGICAL DRESSING, C/D/I. KATHE DRAIN IN RLQ DRAINS SANGUENEOUS FLUID, SMALL AMOUNT OF SHADOWING NOTED IN KATHE DRESSING. PT REPORTS PAIN TOLERABLE 4/10 AT THIS TIME. CPAP IN ROOM. SCDS ON TO BLE FROM KNEES TO ANKLES. PT DENTURES TO ROOM - UPPERS. LH IV SL, RAC IV SL. ABD BINDER IN PLACE OVER ABDOMINAL INCISIONS. PT DENIES NEEDS AT THIS TIME. IS ALERT AND ORIENTED. BED RAILS UP X4. PT ORIENTED TO ROOM, CALL LIGHT AND BED FUNCTIONS. PT ENCOURAGED TO CALL.
--- NOTE | 2024-08-13 18:22 | NUR ---
1710: VS CHECKED. RATES PAIN 10/10. ANESTHESIA GETTING READY TO PLACE TAP BLOCKS. MIDLINE ABDOMINAL DRESSING WITH SMALL SPOT OF DRAINING. SMALL AMOUNT OF RED DRAINAGE ON RLQ KATHE DRESSING. KATHE EMPTIED FOR 50 ML OR SEROSANGGUIOUS FLUID. GRANDDAUGHTER EDUCATED ON KATHE DRAIN. SCDs ON. IV SITES WNL. FAMILY AT BEDSIDE. CALL LIGHT WITHIN REACH. 1740: TAP BLOCKS PLACED BY COLLISION ESTIMATOR. PATIENT RATES PAIN 3/10. LEFT HAND IV FLUSHED WITH SALINE. DR. ARTEAGA CALLED AN UPDATED ON PATIENT STATUS. 1749: PATIENT TRANSFERRED TO MED/SURG ROOM 109. 1805: PATIENT ASSISTED TO TRANSFER FROM STRETCHER TO MED SURG BED. REPORT GIVEN TO MED/SOLAR PHOTOVOLTAIC ELECTRICIAN. PATIENT TOLERATED TRANSFER WELL.
--- NOTE | 2024-08-13 19:28 | NUR ---
REPORT RECEIVED FROM DAY SHIFT RN. PATIENT RESTING IN BED. DENIES NEEDS AT THIS TIME. CALL LIGHT IN REACH.
--- NOTE | 2024-08-13 20:12 | NUR ---
PATIENT RESTING IN BED. VS AND I&Os OBTAINED AND RECORDED. KATHE DRAINED 20 mL OF SEROGANGUINEOUS FLUID. ABD BINDER IN PLACE. SCDs IN PLACE. IV FLUSHES WNL. PATIENT DENIES FURTHER NEEDS AT THIS TIME. CALL LIGHT IN REACH.
--- NOTE | 2024-08-13 21:04 | NUR ---
LAST SET OF POST-OP VITALS OBTAINED AND RECORDED.
--- NOTE | 2024-08-13 22:10 | NUR ---
CALL LIGHT ANSWERED. PATIENT UP TO BATHROOM WITH SBA AND FWW TO VOID. PATIENT BACK TO BED. PATIENT REPORTS 10/10 ABD PAIN. PRN PAIN MEDICATION ADMINISTERED. PATIENT HAS NO FURTHER NEEDS. CALL LIGHT IN REACH. FAMILY REMAINS IN ROOM.
--- NOTE | 2024-08-13 23:15 | NUR ---
PATIENT RESTING IN BED ON BACK WITH EYES CLOSED. CPAP IN PLACE. DENIES NEEDS AT THIS TIME. CALL LIGHT IN REACH.
--- NOTE | 2024-08-14 00:41 | NUR ---
PATIENT RESTING IN BED ON BACK WITH EYES CLOSED. RESPIRATIONS EVEN AND UNLABORED. CALL LIGHT IN REACH.
[2024-08-14 01:25] VITALS: BP 112/62
--- NOTE | 2024-08-14 01:27 | NUR ---
MINE MOTOR OPERATOR OBTAINED VITALS AND I&O. PT STATES MO FURTHER NEEDS AT THIS TIME. CALL LIGHT WITHIN REACH.
--- NOTE | 2024-08-14 02:34 | NUR ---
PATIENT RESTING IN BED ON BACK WITH EYES CLOSED. RESPIRATONS EVEN AND UNLABORED. CALL LIGHT IN REACH.
[2024-08-14 04:00] VITALS: BP 133/66
[2024-08-14 04:02] VITALS: BP 133/66
--- NOTE | 2024-08-14 04:11 | NUR ---
PATIENT REQUESTING PAIN MEDICATION. PRN PAIN MEDICATION ADMINISTERED FOR 4/10 ABD PAIN. VS AND I&Os OBTAINED AND RECORDED. SCDs IN PLACE. PATIENT HAS NO FURTHER NEEDS AT THIS TIME. CALL LIGHT IN REACH.
--- NOTE | 2024-08-14 04:38 | NUR ---
[facility]8 LA[facility] NIGHT.
--- NOTE | 2024-08-14 06:32 | NUR ---
PATIENT REPORTS HEADACHE PAIN. PRN PAIN MEDICATION ADMINISTERED. PATIENT HAS NO FURTHER NEEDS. CALL LIGHT IN REACH.
--- NOTE | 2024-08-14 07:58 | NUR ---
Patient in bed on her phone, no distress. Abdominal binder in place. Patient reports tolerable pain, no nausea. Pt denies needs at this time.
--- NOTE | 2024-08-14 08:49 | NUR ---
Admin dilaudid 0.5mg iv for reports of 6/10 abdominal pain.
--- NOTE | 2024-08-14 09:40 | NUR ---
In and spoke with Shanique. She is a retired nurse from [employer]. She lives in a house with her 42 yo son. Granddaughter, Raul, also assists her as well as other family members. Granddaughter is present in the room. Pt does not use any DME and drives herself. She mentions she does not have a medical rep, poa, or advance directive. I asked if she would like to complete a POLST and she would. Pt request DNR and Selective Treatment. She requests her granddaughter, Raul, as her medical rep. POLST left for Dr. Dick to sign. Pt initially states she has no financial issues but then states she gets less than $2000 per month and her house payment is over $1500. Pt tearful stating she does get short of food. I gave her and Raul the phone numbers for [employer] [employer] in [facility], and [facility] to call and request food stamps. Raul will assist her.
[2024-08-14 10:07] VITALS: BP 120/52
--- NOTE | 2024-08-14 10:18 | NUR ---
PATIENT WAS IN BED AT THIS TIME. CONTROL SYSTEMS DRAFTING OFFICER CHARTED VITALS AND I&O'S. EMPTIED KATHE DRAIN. CALL LIGHT WITH IN REACH, NOTHING ELSE NEEDED AT THIS TIME.
--- NOTE | 2024-08-14 10:35 | NUR ---
ADMIN TWO TABS PERCOCET 7.5/325MG PO AT THIS TIME FOR REPORTED 02/07.
--- NOTE | 2024-08-14 10:47 | NUR ---
PT NOT AVAILABLE FOR VISIT. PROVIDED PRAYER.
--- NOTE | 2024-08-14 11:12 | NUR ---
Attempted to take signed polst to pt. She has discharged. Hand delivered to Dr. Gonzales's office and requested polst be given to pt at her next visit. Copy given to the office and medical records.
--- NOTE | 2024-08-15 13:03 | OR ---
[facility] [address], [place] [address] Signed DATE OF OPERATION: 08/13/2024 SURGEON: Nhi Arteaga MD PREOPERATIVE DIAGNOSIS: Large incisional hernia, supraumbilical area (incarcerated, non-strangulated). POSTOPERATIVE DIAGNOSIS: Large incisional hernia, supraumbilical area (incarcerated, non-strangulated). PROCEDURE: 1. Repair of incarcerated non-strangulated incisional hernia, fascial defect 10 cm. 2. Implantation of Prolene mesh (submuscular layer) and fascial reapproximation. ANESTHESIA: General endotracheal; Tiffanie White CRNA and 10 mL of 0.25% Marcaine with epinephrine. INDICATION: This 78-year-old white woman is a patient of Dr. Selwyn Coelho and underwent emergency operation by md in 2022 with an advanced paraesophageal herniation, essentially a gastric volvulus. This required reduction of the hernia and reconstruction of the GE junction by Hill posterior gastropexy. She did well following operation but over time has developed a bulge in the supraumbilical area consistent with incisional hernia. This enlarged over time and the imaging study in January 2024 showed incompletely reducible supraumbilical incisional hernia containing small bowel. The fascial defect was considered 3.4 cm. Time has allowed for enlargement of the hernia and remains not completely reducible, though it is not strangulated from a clinical perspective. I have recommended repair. She understands the risk of bleeding, infection, recurrence and so forth and wished to proceed. FINDINGS: The fascial defect measured approximately 10 cm in aggregate. The fascia itself was absolutely attenuated at the central portion, but cephalad and inferior was reasonably good. Ultimately, the intraabdominal contents were free from the hernia sac including the omentum and the abdominal envelope reestablished using peritoneal and ultimately the posterior rectus sheath. Implantation of mesh in a submuscular layer was undertaken and ultimately reapproximation of the fascia. 0 Prolene suture with Prolene pledgets was used throughout. She tolerated the procedure well. A drain was used. Electronically Signed By: NHI ARTEAGA MD 08/15/24 1303 PATIENT NAME: AMINATA LAYNE OPERATIVE REPORT DATE OF : 49 REPORT #: [id number] PHYSICIAN: NHI ARTEAGA MD PCP: SELWYN COELHO DO REPORT IS CONFIDENTIAL AND NOT TO BE RELEASED WITHOUT AUTHORIZATION [facility] [address], [place] [address] Signed DESCRIPTION OF PROCEDURE: The patient was brought to the operating room, given a general endotracheal anesthetic. Preoperative antibiotic Ancef was given. Sequential compression device stockings used and heparin subcutaneously administered. The abdomen was prepared with chlorhexidine solution and draped sterilely. Palpation revealed the bulky hernia cephalad to the umbilicus. Using the previous lower aspect of the midline incision, incision was carried through the subcutaneous tissue around the umbilicus. Dissection was taken through the subcutaneous short distance where a hernia sac was identified. This was freed from the surrounding subcutaneous tissue with a blunt electrocautery dissection. Contained within the hernia sac was small bowel. The hernia sac was opened and small bowel ultimately able to be reduced completely. The hernia sac was dissected free from the subcutaneous plane and the fascial edges and maintaining the properitoneal dissection on the left lateral aspect the preperitoneal space was developed fully. On the right side, adhesion of omentum and fusion of the hernia sac required intraabdominal lysis of adhesions freeing the omentum from the hernia sac and ultimately the hernia sac free from the abdominal wall itself also in the properitoneal layer. Excess hernia sac was excised. Attempts at closure of remaining peritoneum were unsuccessful and on that basis, the posterior rectus sheath was freed from the overlying rectus muscles allowing for reapproximation of that layer with 2-0 Vicryl suture to provide a biologic barrier between intended implantation of mesh. Ultimately, the subfascial plane and peritoneum was reapproximated over the intraabdominal viscera. The hernia defect itself was approximately 10 cm. The fascial edges and rectus sheath were reasonably simons. A segment of 6 inch x 6 inch mesh was cut to an elliptical configuration and secured in the properitoneal space (submuscular space in fact) with interrupted 0 Prolene sutures with Prolene pledgets. Overlap of the defect was between 4 and 6 cm. The midline fascia was then reapproximated with interrupted 0 Prolene sutures. Prolene pledgets in a vertical mattress configuration. Irrigation was undertaken during each layer of dissection. Through a separate stab incision, a 7 mm flat Jordan drain was placed in the lower inferior aspect on the right. Kimberlee layer was reapproximated with interrupted 2-0 Vicryl after application of 10 mL of 0.25% Marcaine with epinephrine. The skin was closed with running subcuticular 3-0 Vicryl. Steri-Strips were applied as was an Acticoat dressing. The drains applied to bulb suction. Blood loss was estimated to be less than 100 mL. Sponge, needle, and instrument counts reported as correct x3. Nhi Arteaga MD Electronically Signed By: NHI ARTEAGA MD 08/15/24 1303 PATIENT NAME: AMINATA LAYNE SOLO OPERATIVE REPORT DATE OF : 49 REPORT #: [id number] PHYSICIAN: NHI ARTEAGA MD PCP: SELWYN COELHO DO REPORT IS CONFIDENTIAL AND NOT TO BE RELEASED WITHOUT AUTHORIZATION [place] [id number] [facility] [place] [address] Signed /[facility] /[id number] cc: Selwyn Coelho DO Copies: SELWYN COELHO DO ~ Electronically Signed By: NHI ARTEAGA MD 08/15/24 1303 PATIENT NAME: AMINATA LAYNE SOLO OPERATIVE REPORT DATE OF : 49 REPORT #: [id number] PHYSICIAN: NHI ARTEAGA MD PCP: SELWYN COELHO DO REPORT IS CONFIDENTIAL AND NOT TO BE RELEASED WITHOUT AUTHORIZATION
--- NOTE | 2024-08-17 14:00 | PATH ---
[facility] [address], [place] [address] Signed SPECIMEN(S): A HERNIA SAC SPECIMEN SOURCE: A. HERNIA SAC CLINICAL HISTORY: Ventral incisional hernia. FINAL PATHOLOGIC DIAGNOSIS: Hernia sac: - Benign fibromembranous soft tissue with slight chronic inflammation consistent with clinical hernia sac. JVR:clv MICROSCOPIC EXAMINATION: Histologic sections of all submitted blocks are examined by light microscopy. These findings, together with the gross examination, support the pathologic diagnosis. GROSS DESCRIPTION: The specimen, labeled and designated "Viki, R, " and designated on the requisition "hernia sac," is received in formalin and consists of 10.5 x 6.8 x 2.1 cm membranous saclike structure. The external surface is roughened with attached yellow-haney adipose tissue. The inner lining is violaceous and smooth. Registered Pharmacy Technician sections are submitted in (A1). FB (under the direct supervision of a pathologist) The Gross Description was prepared using a voice recognition system. The report was reviewed for accuracy; however, sound-alike word errors, addition and/or deletions may occur. If there is any question about this report, please contact Client Services. PERFORMING LABORATORY: Technical component was performed by [facility], [address] [place] [id number] (CLIA# [id number]). Professional interpretation was performed by [facility], [address] [place] [id number] (CLIA#: [id number]). Diagnostician: Yehuda Bosch MD Pathologist Electronically Signed 08/17/2024 PATIENT NAME: AMINATA LAYNE SOLO PATHOLOGY DATE OF : 49 REPORT #: [id number] PHYSICIAN: BASIL PATHOLOGY PCP: MOUSTAPHA COELHO DO REPORT IS CONFIDENTIAL AND NOT TO BE RELEASED WITHOUT AUTHORIZATION [address] [address] Signed Copies: ~ PATIENT NAME: AMINATA LAYNE SOLO PATHOLOGY DATE OF : 49 REPORT #: [id number] PHYSICIAN: BASIL PATHOLOGY PCP: MOUSTAPHA COELHO DO REPORT IS CONFIDENTIAL AND NOT TO BE RELEASED WITHOUT AUTHORIZATION
== END 2024-08-14 10:53 | disposition home or self-care (01) ==
LOC: DS 06:01 → MS 17:48 → DS 08-14 10:53
PROVIDERS: ATTEND Surgery
PROC: 3E0T3BZ Introduction of Anesthetic Agent into Peripheral Nerves and Plexi, Percutaneous Approach (ICD-10-PCS; 2024-08-13)
PROC: 0WUF0JZ Supplement Abdominal Wall with Synthetic Substitute, Open Approach (ICD-10-PCS; principal; 2024-08-13 07:30)
DX: K43.0 Incisional hernia with obstruction, without gangrene (principal); I10 Essential (primary) hypertension; E03.9 Hypothyroidism, unspecified; E66.9 Obesity, unspecified; Z68.41 Body mass index [BMI] 40.0-44.9, adult; Z79.890 Hormone replacement therapy; Z79.899 Other long term (current) drug therapy; Z88.0 Allergy status to penicillin; Z91.018 Allergy to other foods
CPT/HCPCS: 00750; 36415; 80048; 84132; 88302; 94660; 94762; 96360; 96361; 96374; 96376; A9270; C1781; J0131; J0690; J1100; J1171; J1644; J2003; J2405; J2704; J2795; J3010; J3480; J3490; J7060; J7121